=== PATIENT | female | born 1955 | race Caucasian/White ===

== ENCOUNTER 2024-05-26 11:56 | Inpatient (IN) | payer MEDICARE, OTHER ==
[2024-05-26] MEDS ORDERED: Amiodarone 150 MG/3 ML VIAL ONE ×2 (12:06→12:11)
[2024-05-26] MEDS ORDERED: NOREPINEPHRINE 8 MG/250 ML-D5W 250 ML ONE (12:11)
[2024-05-26] MEDS ORDERED: EPINEPHrine 1 MG/10 ML Abboject SYRINGE ONE (12:11)
[2024-05-26] MEDS ORDERED: Sodium Bicarb 50 MEQ/50 ML Abboject 8.4% SYRINGE ONE ×2 (12:11→15:02)
[2024-05-26 12:34] LABS: Analyzer IN Cardio ER; Base Excess (BEa) -24.2 mEq/L (-2.0 to +3.0); CO2 Tension 24.3 mmHg (35.0-45.0); Calcium, Ionized (arterial) 1.24 mmol/L (1.12-1.30); Carboxyhemoglobin (COHb) 0.2 gm% (0.0-3.0); Hematocrit-ABG 29 % (36.0-47.0); Hemoglobin (Hb) 9.7 g/dL (12.0-16.0); O2 Tension (PaO2), arterial 386.2 mmHg (> 80.0); Potassium - ABG Lab 4.12 mmol/L (3.70-5.30); pH, Arterial 6.989 (7.35-7.45)
[2024-05-26 12:35] LABS: ALV-art Gradient -60.075 mmHg (0-20); Actual Bicarbonate (HCO3a) 5.7 mEq/L (22-28); Puncture Site Left Brachial artery
[2024-05-26] MEDS ORDERED: Pantoprazole 40 MG VIAL ONE (12:55)
[2024-05-26 13:12] LABS: INR-International Normal Ratio 2.1; Prothrombin Time 23.9 sec (12.0-14.7)
[2024-05-26 13:13] LABS: PTT 49.3 sec (22.9-36.1)
[2024-05-26 13:18] LABS: Phosphorus 5.7 mg/dL (2.3-4.7)
[2024-05-26 13:22] LABS: Acetaminophen Less than 10 mcg/mL (Less than 10); Alcohol Less than 10.0 mg/dL (Less than 10); Salicylate Less than 8.0 mg/dL (Less than 8.0)
[2024-05-26 13:23] LABS: Troponin I 0.022 ng/mL (< 0.028)
[2024-05-26 13:24] LABS: ALT (SGPT) 12 U/L (8-55); AST (SGOT) 27 U/L (5-34); Albumin 1.7 g/dL (3.4-4.8); Alkaline Phosphatase 115 U/L (40-110); Anion Gap 24 mmol/L (10-20); BUN (Urea Nitrogen) 66 mg/dL (9.8-20.1); Bilirubin, Total 0.6 mg/dL (0.2-1.2); CK (CPK) 558 U/L (29-168); Calc. Creatinine Clearance 0 mL/min (70-130); Calcium 7.9 mg/dL (7.8-10.44); Carbon Dioxide 8 mmol/L (23-31); Chloride 114 mmol/L (98-107); Estimated GFR 20; Globulin 2.7 g/dL (2.4-3.5); Glucose 189 mg/dL (80-115); Magnesium 2.2 mg/dL (1.6-2.6); Potassium 3.8 mmol/L (3.5-5.1); Protein, Total 4.4 g/dL (5.8-8.1); Sodium 142 mmol/L (136-145)
[2024-05-26 13:52] LABS: Hematocrit 24.7 % (36.0-47.0); Hemoglobin 8.4 g/dL (12.0-16.0); Mean Corpuscular Hemoglobin 33.7 pg (27.0-31.0); Mean Corpuscular Volume 99.2 fL (78.0-98.0); Platelet Count 103 10x3/uL (130-400); RBC Distribution Width 19.7 % (11.5-14.5); Red Blood Cell (RBC) Count 2.49 mill/uL (4.20-5.40)
[2024-05-26 14:15] LABS: Anisocytosis MODERATE=16-30 cells HPF (0-5); Band 6 % (5-11); Burr Cells MODERATE= 6-15 cells HPF (0-1); Large Platelets 27.5 % (0-5); Lymphocytes 25 % (21-51); Macrocytosis MODERATE=16-30 cells HPF (0-5); Monocytes 9 % (0-10); Neutrophil 60 % (42-75); Nucleated RBC (Manual Ct) 4 % (0); Ovalocytes SLIGHT = 2-5 cells HPF (0-1); Platelet Adequacy Comment Platelets Decreased; Poikilocytosis MARKED = >30 cells HPF (0-5); Polychromasia SLIGHT = 2-3 cells HPF (0-2); Smudge Cells 36.3 %
[2024-05-26] MEDS ORDERED: Ventilator Sedation Protocol 1 EACH FS SCH (14:30)
[2024-05-26] MEDS ORDERED: Sodium Chloride 0.9% 1,000 ML IV SCH (14:30)
[2024-05-26 14:34] LABS: Analyzer IN Cardio ER; Carboxyhemoglobin (COHb) 0.3 gm% (0.0-3.0); Hematocrit-ABG 24 % (36.0-47.0); Hemoglobin (Hb) 8.2 g/dL (12.0-16.0); O2 Tension (PaO2), arterial 414.8 mmHg (> 80.0); Potassium - ABG Lab 3.34 mmol/L (3.70-5.30)
[2024-05-26 14:40] LABS: Actual Bicarbonate (HCO3a) 8.1 mEq/L (22-28); CO2 Tension 23.3 mmHg (35.0-45.0); pH, Arterial 7.158 (7.35-7.45)
[2024-05-26 14:41] LABS: ALV-art Gradient -87.425 mmHg (0-20); Puncture Site Right Radial artery
[2024-05-26] MEDS ORDERED: metroNIDAZOLE 500 MG (100 mL) BAG ONE (14:41)
[2024-05-26] MEDS ORDERED: cefTRIAXone (ROCEPHIN) 2 GM VIAL ONE (14:41)
[2024-05-26] MEDS ORDERED: Sodium Chloride 0.9% 100 ML ONE (14:42)
[2024-05-26] MEDS ORDERED: Lorazepam 2 MG/ML VIAL SLOW IVP PRN (14:45)
[2024-05-26] MEDS ORDERED: Fentanyl BOLUS 250 ML IVPB PRN (14:45)
[2024-05-26] MEDS ORDERED: DISCONTINUE PREVIOUS NARCOTIC PAIN MEDICATIONS AND BENZODIAZEPINES FS SCH (14:45)
[2024-05-26] MEDS ORDERED: Propofol BOLUS 1,000 MG/100 ML VIAL IV PRN (14:45)
[2024-05-26] MEDS ORDERED: Propofol 1,000 MG/100 ML VIAL IV PRN (14:45)
[2024-05-26] MEDS ORDERED: Fentanyl CADD 100 ML IV SCH (14:45)
[2024-05-26] MEDS ORDERED: Amiodarone 450 MG in Dextrose 5% in Water 250 ML IVPB SCH (15:00)
[2024-05-26] MEDS ORDERED: Acetaminophen 325 MG TAB PER TUBE PRN (15:05)
[2024-05-26] MEDS ORDERED: Senokot S 8.6-50 MG TAB PO PRN (15:05)
[2024-05-26] MEDS ORDERED: Ondansetron PF 4 MG/2 ML Vial IVP PRN (15:05)
[2024-05-26] MEDS ORDERED: Bisacodyl 5 MG TAB PO PRN (15:05)
[2024-05-26] MEDS ORDERED: Amiodarone 450 MG, Admixture Fee 1 EACH in Dextrose 5% in Water 250 ML IVPB SCH (15:15)
[2024-05-26] MEDS: Lactated Ringer's 1,000 ML IV SCH (16:35)
[2024-05-26 16:45] LABS: Anion Gap 20 mmol/L (10-20); BUN (Urea Nitrogen) 61 mg/dL (9.8-20.1); Calc. Creatinine Clearance 0 mL/min (70-130); Carbon Dioxide 10 mmol/L (23-31); Chloride 115 mmol/L (98-107); Estimated GFR 25; Glucose 305 mg/dL (80-115); Potassium 3.5 mmol/L (3.5-5.1); Sodium 141 mmol/L (136-145)
[2024-05-26] MEDS: Albumin 25% 25 GM (100 mL) BOT IVPB SCH (16:45)
[2024-05-26] MEDS: Vancomycin 1.5 GRAM/300 ML BAG 1.5 GM in Premix 1 BAG IVPB SCH (16:56)
[2024-05-26] MEDS: Thiamine HCl 200 MG/2 ML VIAL SLOW IVP SCH (17:02)
[2024-05-26] MEDS: Multivitamins, Adult 10 ML, Thiamine HCl 100 MG, Folic Acid 1 MG in Dextrose 5 %-0.45 %... IV SCH (17:05)
[2024-05-26] MEDS: Piperacillin/Tazobactam 3.375 GM in Sodium Chloride 0.9% 100 ML IVPB SCH ×2 (17:07→20:04)
[2024-05-26] MEDS ORDERED: Vancomycin Dose by Levels Sliding Scale (Wt <71) FS SCH (17:30)
[2024-05-26] MEDS: Sodium Bicarbonate 70 MEQ in Sodium Chloride 0.45% 1,000 ML IV SCH (17:30)
[2024-05-26 18:09] LABS: Hematocrit 18.1 % (36.0-47.0); Hemoglobin 6.4 g/dL (12.0-16.0)
[2024-05-26 18:29] LABS: Anion Gap 18 mmol/L (10-20); BUN (Urea Nitrogen) 58 mg/dL (9.8-20.1); Calc. Creatinine Clearance 25 mL/min (70-130); Calcium 6.9 mg/dL (7.8-10.44); Carbon Dioxide 11 mmol/L (23-31); Chloride 113 mmol/L (98-107); Estimated GFR 24; Glucose 294 mg/dL (80-115); Potassium 3.2 mmol/L (3.5-5.1); Sodium 139 mmol/L (136-145)
[2024-05-26] MEDS: Ipratropium/Albuterol 3 ML NEB NEB SCH (18:46)
[2024-05-26] MEDS: Calcium Chloride 1 GM/10 ML Abboject SYRINGE IVP SCH (19:33)
[2024-05-26 19:47] LABS: Lactic Acid 4.96 mmol/L (0.5-2.2)
[2024-05-27 01:51] LABS: Amphetamine Not Detected (NotDetected); Barbiturates Screen Not Detected (NotDetected); Benzodiazepine Screen Not Detected (NotDetected); Cocaine Metabolite Screen Not Detected (NotDetected); Methadone Not Detected (NotDetected); Methamphetamine Not Detected (NotDetected); Opiate Screen Not Detected (NotDetected); Oxycodone Screen Not Detected (NotDetected); Phencyclidine (PCP) Not Detected (NotDetected); THC/Cannabinoid Screen Not Detected (NotDetected); Tricyclic Screen Not Detected (NotDetected)
[2024-05-27] MEDS: NOREPINEPHRINE 8 MG/250 ML-D5W 250 ML IVPB SCH (02:08)
[2024-05-27] MEDS: Pantoprazole 80 MG, Admixture Fee 1 EACH in Sodium Chloride 0.9% 100 ML IVPB SCH (02:22)
[2024-05-27 04:42] LABS: Lactic Acid 3.45 mmol/L (0.5-2.2)
[2024-05-27 04:45] LABS: INR-International Normal Ratio 1.8; Prothrombin Time 20.9 sec (12.0-14.7)
[2024-05-27 04:55] LABS: ALT (SGPT) 9 U/L (8-55); AST (SGOT) 31 U/L (5-34); Albumin 2.6 g/dL (3.4-4.8); Alkaline Phosphatase 79 U/L (40-110); Anion Gap 19 mmol/L (10-20); BUN (Urea Nitrogen) 58 mg/dL (9.8-20.1); Bilirubin, Total 1.4 mg/dL (0.2-1.2); CK (CPK) 303 U/L (29-168); Calc. Creatinine Clearance 24 mL/min (70-130); Calcium 7.9 mg/dL (7.8-10.44); Carbon Dioxide 14 mmol/L (23-31); Chloride 111 mmol/L (98-107); Estimated GFR 24; Globulin 1.8 g/dL (2.4-3.5); Glucose 64 mg/dL (80-115); Phosphorus 2.7 mg/dL (2.3-4.7); Potassium 3.4 mmol/L (3.5-5.1); Protein, Total 4.4 g/dL (5.8-8.1); Sodium 141 mmol/L (136-145)
[2024-05-27 05:19] VITALS: BMI 28.4
[2024-05-27 07:18] LABS: Actual Bicarbonate (HCO3a) 15.2 mEq/L (22-28); Base Excess (BEa) -7.6 mEq/L (-2.0 to +3.0); Calcium, Ionized (arterial) 1.07 mmol/L (1.12-1.30); Carboxyhemoglobin (COHb) 0.4 gm% (0.0-3.0); Hematocrit-ABG 25 % (36.0-47.0); Hemoglobin (Hb) 8.6 g/dL (12.0-16.0); O2 Tension (PaO2), arterial 117.1 mmHg (> 80.0); pH, Arterial 7.452 (7.35-7.45)
[2024-05-27 07:19] LABS: CO2 Tension 22.2 mmHg (35.0-45.0); Puncture Site Right Brachial art
[2024-05-27] MEDS: Piperacillin/Tazobactam 3.375 GM in Sodium Chloride 0.9% 100 ML IVPB SCH (07:37)
[2024-05-27] MEDS: Pantoprazole 40 MG VIAL IVP SCH (07:38)
[2024-05-27 08:42] LABS: Mean Corpuscular HGB CONC 36.4 g/dL (32.0-36.0); Mean Corpuscular Hemoglobin 32.9 pg (27.0-31.0); Mean Corpuscular Volume 90.5 fL (78.0-98.0); Platelet Count 87 10x3/uL (130-400); RBC Distribution Width 18.2 % (11.5-14.5); Red Blood Cell (RBC) Count 2.43 mill/uL (4.20-5.40)
[2024-05-27 09:29] LABS: Band 3 % (5-11); Burr Cells SLIGHT = 2-5 cells HPF (0-1); Hypersegmented Neutrophil MODERATE (None Seen); Large Platelets 9.8 % (0-5); Lymphocytes 17 % (21-51); Monocytes 4 % (0-10); Neutrophil 76 % (42-75); Platelet Adequacy Comment Platelets Decreased; Polychromasia MODERATE = 3-4 cells HPF (0-2); Reflex for Review?? YES; Schistocytes SLIGHT = 2-5 cells HPF (0-1); Smudge Cells 5.9 %
[2024-05-27] MEDS: Potassium Chloride 40 MEQ in Premix 1 BAG IVPB SCH (09:49)
[2024-05-27] MEDS: Morphine 2 MG/ML VIAL SLOW IVP PRN (11:39)
[2024-05-27 13:09] LABS: Hematocrit 20.1 % (36.0-47.0); Hemoglobin 7.4 g/dL (12.0-16.0); Mean Corpuscular HGB CONC 36.8 g/dL (32.0-36.0); Mean Corpuscular Hemoglobin 33.9 pg (27.0-31.0); Mean Corpuscular Volume 92.2 fL (78.0-98.0); Platelet Count 81 10x3/uL (130-400); RBC Distribution Width 18.5 % (11.5-14.5); Red Blood Cell (RBC) Count 2.18 mill/uL (4.20-5.40)
[2024-05-27] MEDS: Acetaminophen 500 MG TAB PO SCH (14:13)
[2024-05-27 14:18] LABS: Anisocytosis MARKED = >30 cells HPF (0-5); Band 2 % (5-11); Burr Cells SLIGHT = 2-5 cells HPF (0-1); Large Platelets 8.9 % (0-5); Lymphocytes 12 % (21-51); Macrocytosis MODERATE=16-30 cells HPF (0-5); Monocytes 3 % (0-10); Neutrophil 83 % (42-75); Nucleated RBC (Manual Ct) 2 % (0); Ovalocytes SLIGHT = 2-5 cells HPF (0-1); Platelet Adequacy Comment Platelets Decreased; Polychromasia SLIGHT = 2-3 cells HPF (0-2); Smudge Cells 5.9 %; Target Cells SLIGHT = 2-5 cells HPF (0-1)
[2024-05-27] MEDS: DC Sedation Protocol FS ONE (14:29)
[2024-05-27] MEDS: Silver Sulfadiazine 50 GM TUBE TOP SCH ×2 (15:49→20:18)
[2024-05-27 16:51] LABS: Vancomycin, Trough 22.6 ug/mL
[2024-05-27] MEDS: traMADol HCl 50 MG TAB PO PRN (19:49)
[2024-05-28 05:07] LABS: Hematocrit 20.5 % (36.0-47.0); Hemoglobin 7.4 g/dL (12.0-16.0); Mean Corpuscular HGB CONC 36.1 g/dL (32.0-36.0); Mean Corpuscular Hemoglobin 33.3 pg (27.0-31.0); Mean Corpuscular Volume 92.3 fL (78.0-98.0); Platelet Count 70 10x3/uL (130-400); RBC Distribution Width 18.6 % (11.5-14.5); Red Blood Cell (RBC) Count 2.22 mill/uL (4.20-5.40)
[2024-05-28 05:10] LABS: Calc. Creatinine Clearance 24 mL/min (70-130); Estimated GFR 20; Vancomycin, Random 19.4 ug/mL (See Comment)
[2024-05-28 05:12] LABS: ALT (SGPT) 11 U/L (8-55); AST (SGOT) 36 U/L (5-34); Albumin 2.7 g/dL (3.4-4.8); Alkaline Phosphatase 86 U/L (40-110); Anion Gap 17 mmol/L (10-20); BUN (Urea Nitrogen) 52 mg/dL (9.8-20.1); Bilirubin, Total 2.5 mg/dL (0.2-1.2); Calcium 7.2 mg/dL (7.8-10.44); Carbon Dioxide 18 mmol/L (23-31); Chloride 106 mmol/L (98-107); Globulin 1.6 g/dL (2.4-3.5); Glucose 100 mg/dL (80-115); Magnesium 1.3 mg/dL (1.6-2.6); Phosphorus 2.5 mg/dL (2.3-4.7); Potassium 3.4 mmol/L (3.5-5.1); Protein, Total 4.3 g/dL (5.8-8.1); Sodium 138 mmol/L (136-145)
[2024-05-28 05:17] LABS: INR-International Normal Ratio 1.6; Prothrombin Time 18.9 sec (12.0-14.7)
[2024-05-28 05:18] LABS: PTT 49.9 sec (22.9-36.1)
[2024-05-28 05:35] LABS: Anisocytosis SLIGHT = 6-15 cells HPF (0-5); Band 3 % (5-11); Hypochromia SLIGHT = 6-15 cells HPF (0-5); Lymphocytes 15 % (21-51); Monocytes 4 % (0-10); Neutrophil 78 % (42-75); Nucleated RBC (Manual Ct) 2 % (0); Platelet Adequacy Comment Platelets Decreased; Polychromasia SLIGHT = 2-3 cells HPF (0-2)
[2024-05-28] MEDS: Vancomycin HCl 250 MG, Admixture Fee 1 EACH in Sodium Chloride 0.9% 100 ML IVPB SCH (08:57)
[2024-05-28] MEDS: Potassium Chloride 40 MEQ in Premix 1 BAG IVPB SCH (10:23)
[2024-05-28] MEDS: Magnesium 2 GM/50 ML(in water) 2 GM in Premix 1 BAG IVPB SCH (10:24)
[2024-05-28] MEDS: Sodium Bicarbonate 70 MEQ in Sodium Chloride 0.45% 1,000 ML IV SCH (13:09)
[2024-05-28] MEDS: traMADol HCl 50 MG TAB PO PRN (17:05)
[2024-05-29 04:25] LABS: #Basophils 0.04 10x3/uL (0.0-0.2); %Basophils 0.6 % (0.0-1.0); %Eosinophils 1.5 % (0.0-10.0); %Lymphocytes 25.3 % (21.0-51.0); %Monocytes 7.8 % (0.0-10.0); %Neutrophils 60.8 % (42.0-75.0); Hematocrit 22.6 % (36.0-47.0); Hemoglobin 8.2 g/dL (12.0-16.0); Mean Corpuscular HGB CONC 36.3 g/dL (32.0-36.0); Mean Corpuscular Hemoglobin 31.7 pg (27.0-31.0); Mean Corpuscular Volume 87.3 fL (78.0-98.0); Platelet Count 48 10x3/uL (130-400); RBC Distribution Width 19.9 % (11.5-14.5); Red Blood Cell (RBC) Count 2.59 mill/uL (4.20-5.40)
[2024-05-29 04:39] LABS: ALT (SGPT) 13 U/L (8-55); AST (SGOT) 37 U/L (5-34); Albumin 2.3 g/dL (3.4-4.8); Alkaline Phosphatase 96 U/L (40-110); Anion Gap 13 mmol/L (10-20); BUN (Urea Nitrogen) 41 mg/dL (9.8-20.1); Bilirubin, Total 3.4 mg/dL (0.2-1.2); Calc. Creatinine Clearance 29 mL/min (70-130); Calcium 7.2 mg/dL (7.8-10.44); Carbon Dioxide 24 mmol/L (23-31); Chloride 104 mmol/L (98-107); Estimated GFR 25; Globulin 1.8 g/dL (2.4-3.5); Glucose 82 mg/dL (80-115); Magnesium 1.5 mg/dL (1.6-2.6); Phosphorus 2.1 mg/dL (2.3-4.7); Potassium 3.2 mmol/L (3.5-5.1); Protein, Total 4.1 g/dL (5.8-8.1); Sodium 138 mmol/L (136-145)
[2024-05-29 05:00] LABS: HBSAB Concentration Less than 8.00 mIU/mL; HBsAg Index 0.29 S/CO (0-0.99); Hep B Core Total Ab NONREACTIVE (NonReactive); Hep B Core Total Index 0.09 S/CO (0-0.79); Hep B Surf AB NONREACTIVE (NonReactive); Hep B Surf Ag NONREACTIVE S/CO (NonReactive); Hep C IgG Ab NONREACTIVE S/CO (NonReactive); Hep C Index 0.09 S/CO (0-0.79)
[2024-05-29] MEDS: Magnesium Sulfate In Water 4 GM in Premix 1 BAG IVPB SCH (05:44)
[2024-05-29] MEDS ORDERED: Magnesium Sulfate 4 GM in Sodium Chloride 0.9% 250 ML 250 ML IVPB SCH (05:45)
[2024-05-29] MEDS: Potassium Chloride 20 MEQ in Premix 1 BAG IVPB SCH (08:15)
[2024-05-29 10:32] LABS: Vancomycin, Trough 16.3 ug/mL
[2024-05-29] MEDS ORDERED: Electrolyte Replacement Protocol FS PRN (11:30)
[2024-05-29] MEDS: Vancomycin HCl 250 MG, Admixture Fee 1 EACH in Sodium Chloride 0.9% 100 ML IVPB SCH (11:32)
[2024-05-29] MEDS: Lactated Ringer's 1,000 ML IV SCH ×2 (11:36)
[2024-05-29] MEDS: Midodrine HCl 5 MG TAB PO SCH ×2 (11:38→14:34)
[2024-05-29 16:07] LABS: T4 2.76 ug/dL (4.87-11.72); Thyroid Stimulating Hormone 4.0642 uIU/mL (0.35-4.94)
[2024-05-29] MEDS: Hydrocortisone Sod Succ/PF 100 mg/2 ml Vial IVP SCH ×2 (16:38→21:11)
[2024-05-30 03:43] LABS: Hemoglobin 8.9 g/dL (12.0-16.0); Mean Corpuscular HGB CONC 35.6 g/dL (32.0-36.0); Mean Corpuscular Hemoglobin 31.7 pg (27.0-31.0); Platelet Count 56 10x3/uL (130-400); RBC Distribution Width 20.2 % (11.5-14.5); Red Blood Cell (RBC) Count 2.81 mill/uL (4.20-5.40)
[2024-05-30 03:59] LABS: Magnesium 2.3 mg/dL (1.6-2.6)
[2024-05-30 04:06] LABS: ALT (SGPT) 16 U/L (8-55); AST (SGOT) 39 U/L (5-34); Albumin 2.3 g/dL (3.4-4.8); Alkaline Phosphatase 154 U/L (40-110); Anion Gap 15 mmol/L (10-20); BUN (Urea Nitrogen) 33 mg/dL (9.8-20.1); Bilirubin, Total 2.2 mg/dL (0.2-1.2); Calc. Creatinine Clearance 38 mL/min (70-130); Calcium 7.3 mg/dL (7.8-10.44); Carbon Dioxide 20 mmol/L (23-31); Chloride 105 mmol/L (98-107); Estimated GFR 33; Globulin 2.1 g/dL (2.4-3.5); Glucose 130 mg/dL (80-115); Iron 33 ug/dL (50-170); Iron Binding Capacity, Total 93 mcg/dL (265-497); Phosphorus 2.6 mg/dL (2.3-4.7); Potassium 3.4 mmol/L (3.5-5.1); Protein, Total 4.4 g/dL (5.8-8.1); Sodium 137 mmol/L (136-145)
[2024-05-30 04:28] LABS: Anisocytosis SLIGHT = 6-15 cells HPF (0-5); Eosinophils 1 % (0-10); Large Platelets 27.3 % (0-5); Lymphocytes 18 % (21-51); Monocytes 7 % (0-10); Neutrophil 74 % (42-75); Nucleated RBC (Manual Ct) 1 % (0); Platelet Adequacy Comment Platelets Decreased; Polychromasia SLIGHT = 2-3 cells HPF (0-2); Smudge Cells 18.2 %
[2024-05-30] MEDS: Potassium Chloride 20 MEQ in Premix 1 BAG IVPB SCH (05:12)
[2024-05-30] MEDS ORDERED: Levothyroxine Sodium 25 MCG TAB PO SCH (10:30)
[2024-05-30] MEDS: Electrolyte Replacement Protocol 1 EACH FS ONE (11:11)
[2024-05-30] MEDS: Levothyroxine 100 MCG SDV IVP SCH (11:42)
[2024-05-30] MEDS: Albumin 25% 25 GM (100 mL) BOT IVPB SCH (11:42)
[2024-05-30 12:38] LABS: Potassium 3.7 mmol/L (3.5-5.1)
[2024-05-30 12:43] LABS: Vancomycin, Random 14.6 ug/mL (See Comment)
[2024-05-30] MEDS: Vancomycin HCl 500 MG in Sodium Chloride 0.9% 100 ML IVPB SCH (13:21)
[2024-05-31 03:34] LABS: Vancomycin, Random 18.1 ug/mL (See Comment)
[2024-05-31 03:38] LABS: ALT (SGPT) 11 U/L (8-55); AST (SGOT) 25 U/L (5-34); Albumin 3.2 g/dL (3.4-4.8); Alkaline Phosphatase 144 U/L (40-110); Anion Gap 15 mmol/L (10-20); BUN (Urea Nitrogen) 27 mg/dL (9.8-20.1); Bilirubin, Total 1.7 mg/dL (0.2-1.2); Calc. Creatinine Clearance 45 mL/min (70-130); Calcium 7.8 mg/dL (7.8-10.44); Carbon Dioxide 20 mmol/L (23-31); Chloride 111 mmol/L (98-107); Estimated GFR 41; Globulin 1.4 g/dL (2.4-3.5); Glucose 123 mg/dL (80-115); Phosphorus 2.2 mg/dL (2.3-4.7); Potassium 2.9 mmol/L (3.5-5.1); Protein, Total 4.6 g/dL (5.8-8.1); Sodium 143 mmol/L (136-145)
[2024-05-31 04:09] LABS: #Basophils Less than 0.03 10x3/uL (0.0-0.2); #Eosinophils Less than 0.03 10x3/uL (0.0-0.7); %Lymphocytes 13.8 % (21.0-51.0); %Monocytes 11.6 % (0.0-10.0); %Neutrophils 70.4 % (42.0-75.0); Hematocrit 19.1 % (36.0-47.0); Hemoglobin 6.6 g/dL (12.0-16.0); Mean Corpuscular HGB CONC 34.6 g/dL (32.0-36.0); Mean Corpuscular Volume 92.7 fL (78.0-98.0); Platelet Count 50 10x3/uL (130-400); RBC Distribution Width 20.7 % (11.5-14.5); Red Blood Cell (RBC) Count 2.06 mill/uL (4.20-5.40)
[2024-05-31] MEDS: Potassium Chloride 20 MEQ in Premix 1 BAG IVPB SCH (04:34)
[2024-05-31] MEDS: Levothyroxine Sodium 25 MCG TAB PO SCH (05:36)
[2024-05-31 08:42] LABS: Hemoglobin 7.2 g/dL (12.0-16.0)
[2024-05-31 21:40] LABS: Potassium 3.8 mmol/L (3.5-5.1)
[2024-06-01 04:54] LABS: Hemoglobin 9.1 g/dL (12.0-16.0); Mean Corpuscular Hemoglobin 30.8 pg (27.0-31.0); Mean Corpuscular Volume 88.1 fL (78.0-98.0); Platelet Count 79 10x3/uL (130-400); RBC Distribution Width 22.5 % (11.5-14.5); Red Blood Cell (RBC) Count 2.95 mill/uL (4.20-5.40)
[2024-06-01 05:24] LABS: Anisocytosis SLIGHT = 6-15 cells HPF (0-5); Band 3 % (5-11); Hypochromia SLIGHT = 6-15 cells HPF (0-5); Large Platelets 11.4 % (0-5); Lymphocytes 15 % (21-51); Monocytes 19 % (0-10); Myelocyte 3 % (0-0); Neutrophil 60 % (42-75); Platelet Adequacy Comment Platelets Decreased; Polychromasia MODERATE = 3-4 cells HPF (0-2); Smudge Cells 3.8 %
[2024-06-01 06:13] LABS: ALT (SGPT) 15 U/L (8-55); AST (SGOT) 30 U/L (5-34); Albumin 3.1 g/dL (3.4-4.8); Alkaline Phosphatase 177 U/L (40-110); Anion Gap 16 mmol/L (10-20); BUN (Urea Nitrogen) 25 mg/dL (9.8-20.1); Bilirubin, Total 1.6 mg/dL (0.2-1.2); Calc. Creatinine Clearance 51 mL/min (70-130); Calcium 8.3 mg/dL (7.8-10.44); Carbon Dioxide 17 mmol/L (23-31); Chloride 114 mmol/L (98-107); Estimated GFR 47; Globulin 1.7 g/dL (2.4-3.5); Glucose 115 mg/dL (80-115); Phosphorus 2.5 mg/dL (2.3-4.7); Potassium 3.7 mmol/L (3.5-5.1); Protein, Total 4.8 g/dL (5.8-8.1); Sodium 143 mmol/L (136-145)
[2024-06-01] MEDS ORDERED: PROPOFOL 200 MG/20 ML VIAL ONE (12:58)
[2024-06-01] MEDS ORDERED: Lidocaine 1% PF 5 ML VIAL ONE (12:58)
[2024-06-01] MEDS: Fluconazole In NaCl,Iso-Osm 400 MG in Premix 1 BAG IVPB SCH (15:24)
[2024-06-01] MEDS: Pantoprazole 40 MG VIAL IVP SCH (20:40)
[2024-06-02 04:49] LABS: Phosphorus 2.7 mg/dL (2.3-4.7)
[2024-06-02 04:50] LABS: Hematocrit 27.7 % (36.0-47.0); Hemoglobin 9.1 g/dL (12.0-16.0); Mean Corpuscular HGB CONC 32.9 g/dL (32.0-36.0); Mean Corpuscular Hemoglobin 31.7 pg (27.0-31.0); Mean Corpuscular Volume 96.5 fL (78.0-98.0); Mean Platelet Volume 13.9 fL (7.4-10.4); Platelet Count 114 10x3/uL (130-400); RBC Distribution Width 24.1 % (11.5-14.5); Red Blood Cell (RBC) Count 2.87 mill/uL (4.20-5.40)
[2024-06-02 05:01] LABS: ALT (SGPT) 13 U/L (8-55); AST (SGOT) 17 U/L (5-34); Albumin 2.9 g/dL (3.4-4.8); Alkaline Phosphatase 146 U/L (40-110); Anion Gap 13 mmol/L (10-20); BUN (Urea Nitrogen) 23 mg/dL (9.8-20.1); Bilirubin, Total 1.3 mg/dL (0.2-1.2); Calc. Creatinine Clearance 59 mL/min (70-130); Calcium 8.2 mg/dL (7.8-10.44); Carbon Dioxide 20 mmol/L (23-31); Chloride 117 mmol/L (98-107); Estimated GFR 56; Globulin 1.6 g/dL (2.4-3.5); Glucose 110 mg/dL (80-115); Potassium 3.4 mmol/L (3.5-5.1); Protein, Total 4.5 g/dL (5.8-8.1); Sodium 147 mmol/L (136-145)
[2024-06-02 06:53] LABS: Anisocytosis MODERATE=16-30 cells HPF (0-5); Burr Cells SLIGHT = 2-5 cells HPF (0-1); Howell Jolly Bodies SLIGHT = 1-2 cells HPF (None Seen); Large Platelets 26.9 % (0-5); Lymphocytes 16 % (21-51); Macrocytosis SLIGHT = 6-15 cells HPF (0-5); Metamyelocyte 1 % (0-0); Monocytes 9 % (0-10); Neutrophil 72 % (42-75); Nucleated RBC (Manual Ct) 1 % (0); Other Cell Types 2.2; Platelet Adequacy Comment Platelets Decreased; Poikilocytosis SLIGHT = 6-15 cells HPF (0-5); Polychromasia SLIGHT = 2-3 cells HPF (0-2); Smudge Cells 8.6 %
[2024-06-02] MEDS: 1/2 NS w/Potassium 20 mEq 1,000 ML IV SCH (10:16)
[2024-06-02] MEDS: Potassium Chloride 20 MEQ TAB PO SCH (10:16)
[2024-06-02] MEDS: Fluconazole In NaCl,Iso-Osm 200 MG in Premix 1 BAG IVPB SCH (10:16)
[2024-06-02 11:50] LABS: ANA Symphony (Qualitative) Negative (Negative); ANA Symphony (Quantitative) 0.3 Ratio (< 0.7 Negative); EliA Vaculitis New Method **** NEW METHOD ****; Mitochondrial Ab 1.6 U/mL (<4 Negative); dsDNA IgG Antibody 1.5 IU/mL (<10 Negative)
[2024-06-02] MEDS ORDERED: Ipratropium/Albuterol 3 ML NEB NEB PRN (12:45)
[2024-06-02] MEDS: Hydrocortisone Sod Succ/PF 100 mg/2 ml Vial IVP SCH (14:41)
[2024-06-03 04:41] LABS: Hematocrit 27.7 % (36.0-47.0); Hemoglobin 8.9 g/dL (12.0-16.0); Mean Corpuscular HGB CONC 32.1 g/dL (32.0-36.0); Mean Corpuscular Hemoglobin 31.7 pg (27.0-31.0); Mean Corpuscular Volume 98.6 fL (78.0-98.0); Mean Platelet Volume 13.1 fL (7.4-10.4); Platelet Count 158 10x3/uL (130-400); Red Blood Cell (RBC) Count 2.81 mill/uL (4.20-5.40)
[2024-06-03 05:10] LABS: Anisocytosis SLIGHT = 6-15 cells HPF (0-5); Band 2 % (5-11); Hypochromia SLIGHT = 6-15 cells HPF (0-5); Large Platelets 12.5 % (0-5); Lymphocytes 6 % (21-51); Monocytes 7 % (0-10); Neutrophil 86 % (42-75); Nucleated RBC (Manual Ct) 1 % (0); Platelet Adequacy Comment Platelets Normal; Polychromasia SLIGHT = 2-3 cells HPF (0-2); Smudge Cells 7.7 %
[2024-06-03 05:12] LABS: ALT (SGPT) 12 U/L (8-55); AST (SGOT) 17 U/L (5-34); Albumin 2.8 g/dL (3.4-4.8); Alkaline Phosphatase 121 U/L (40-110); Anion Gap 12 mmol/L (10-20); BUN (Urea Nitrogen) 23 mg/dL (9.8-20.1); Bilirubin, Total 1.1 mg/dL (0.2-1.2); Calc. Creatinine Clearance 66 mL/min (70-130); Calcium 8.2 mg/dL (7.8-10.44); Carbon Dioxide 18 mmol/L (23-31); Chloride 117 mmol/L (98-107); Estimated GFR 65; Globulin 1.9 g/dL (2.4-3.5); Glucose 108 mg/dL (80-115); Phosphorus 2.2 mg/dL (2.3-4.7); Potassium 3.4 mmol/L (3.5-5.1); Protein, Total 4.7 g/dL (5.8-8.1); Sodium 144 mmol/L (136-145)
[2024-06-03] MEDS ORDERED: Regadenoson 0.4 MG/5 ML SYRINGE ONE (11:11)
[2024-06-03] MEDS ORDERED: Ipratropium/Albuterol 3 ML NEB NEB PRN (13:49)
[2024-06-03] MEDS: Multivitamin W/ Minerals 1 TAB PO SCH (14:48)
[2024-06-03] MEDS: Thiamine 100 MG TAB PO SCH (14:48)
[2024-06-03] MEDS: Potassium Chloride 20 MEQ TAB PO SCH (14:48)
[2024-06-03] MEDS: Amlodipine 10 MG TAB PO SCH (21:42)
[2024-06-04] MEDS: Amlodipine 10 MG TAB PO SCH (08:40)
[2024-06-04 11:19] VITALS: BMI 30.4
[2024-06-07] MEDS: Fluconazole 100 MG TAB PO SCH (09:04)
[2024-06-08] MEDS ORDERED: Sertraline 25 MG TAB PO SCH (09:14)
[2024-06-08] MEDS: Sertraline 25 MG TAB PO SCH (10:50)
[2024-06-08 12:39] VITALS: BP 121/68; TEMP 97.7
[2024-06-08] MEDS ORDERED: Pantoprazole 40 MG DR.TAB PO SCH (21:00)
[2024-06-10] MEDS ORDERED: FLU (Fluad Triv) TS24-25 (65UP)/MF59C/PF 45 MCG/0.5 ML Syringe IM ONE (09:00)
== END 2024-06-08 15:55 | DRG 871 ==
LOC: SUATTDRO 11:56 → ERS 11:56 → CCU 15:02 → 2NO 05-31 11:13
PROVIDERS: ADMIT Internal Medicine; ATTEND Hospitalist
PROC: 30233N1 Transfusion of Nonautologous Red Blood Cells into Peripheral Vein, Percutaneous Approach (ICD-10-PCS; principal; 2024-05-26)
PROC: 5A1935Z Respiratory Ventilation, Less than 24 Consecutive Hours (ICD-10-PCS; 2024-05-26)
PROC: 4A033R1 Measurement of Arterial Saturation, Peripheral, Percutaneous Approach (ICD-10-PCS; 2024-05-26)
PROC: 3E033XZ Introduction of Vasopressor into Peripheral Vein, Percutaneous Approach (ICD-10-PCS; 2024-05-26)
PROC: 30233J1 Transfusion of Nonautologous Serum Albumin into Peripheral Vein, Percutaneous Approach (ICD-10-PCS; 2024-05-26)
PROC: 0DB68ZX Excision of Stomach, Via Natural or Artificial Opening Endoscopic, Diagnostic (ICD-10-PCS; 2024-06-01)
DX: A41.9 Sepsis, unspecified organism (principal); E43 Unspecified severe protein-calorie malnutrition; I46.8 Cardiac arrest due to other underlying condition; K27.4 Chronic or unspecified peptic ulcer, site unspecified, with hemorrhage; K22.11 Ulcer of esophagus with bleeding; J96.01 Acute respiratory failure with hypoxia; B37.81 Candidal esophagitis; E87.20 Acidosis, unspecified; L03.317 Cellulitis of buttock; I47.20 Ventricular tachycardia, unspecified; N17.9 Acute kidney failure, unspecified; M62.82 Rhabdomyolysis; E27.40 Unspecified adrenocortical insufficiency; F10.90 Alcohol use, unspecified, uncomplicated; F39 Unspecified mood [affective] disorder; I10 Essential (primary) hypertension; T68.XXXA Hypothermia, initial encounter; K74.60 Unspecified cirrhosis of liver; E03.9 Hypothyroidism, unspecified; D64.9 Anemia, unspecified; R65.20 Severe sepsis without septic shock; Z96.653 Presence of artificial knee joint, bilateral; F17.210 Nicotine dependence, cigarettes, uncomplicated; G89.29 Other chronic pain; M54.9 Dorsalgia, unspecified; Z88.5 Allergy status to narcotic agent; Z68.28 Body mass index [BMI] 28.0-28.9, adult
CPT/HCPCS: 36415; 36430; 36556; 36600; 51702; 70450; 71045; 76705; 78452; 80053; 80202; 80306; 80307; 82103; 82271; 82390; 82533; 82550; 82728; 82805; 83516; 83540; 83550; 83605; 83735; 84100; 84436; 84443; 84481; 84484; 85025; 85060; 85610; 85730; 86015; 86038; 86225; 86704; 86706; 86708; 86803; 86850; 86900; 86901; 87040; 87086; 87340; 87428; 88305; 88342; 92950; 93005; 93017; 93306; 94002; 94003; 94640; 96365; 96366; 96367; 96368; 96375; 97139; A9502; J0171; J0282; J0283; J0696; J1450; J1720; J2272; J2470; J2543; J2704; J2785; J3370; J3411; J3475; J3480; J7042; J7070; J7120; J7620; P9016; P9047

== ENCOUNTER 2024-06-12 03:35 | Inpatient (IN) | payer MEDICARE ==
[2024-06-12] MEDS ORDERED: Potassium Bicarbonate/Cit Ac 20 MEQ TAB ONE (03:44)
[2024-06-12] MEDS ORDERED: NOREPINEPHRINE 8 MG/250 ML-D5W 250 ML ONE (03:52)
[2024-06-12 03:55] LABS: Actual Bicarbonate (HCO3a) 29.9 mEq/L (22-28); Analyzer IN Cardio ER; Base Excess (BEa) 7.6 mEq/L (-2.0 to +3.0); CO2 Tension 32.7 mmHg (35.0-45.0); Carboxyhemoglobin (COHb) 1.2 gm% (0.0-3.0); Hematocrit-ABG 24 % (36.0-47.0); Potassium - ABG Lab 2.75 mmol/L (3.70-5.30); pH, Arterial 7.579 (7.35-7.45)
[2024-06-12 04:01] LABS: ALV-art Gradient 272.625 mmHg (0-20); Puncture Site RR
[2024-06-12] MEDS ORDERED: Ipratropium/Albuterol 3 ML NEB NEB PRN (05:03)
[2024-06-12] MEDS ORDERED: Electrolyte Replacement Protocol 1 EACH FS PRN (05:06)
[2024-06-12] MEDS ORDERED: Acetaminophen 325 MG TAB PO PRN (05:49)
[2024-06-12] MEDS ORDERED: Ondansetron PF 4 MG/2 ML Vial IVP PRN (05:49)
[2024-06-12] MEDS ORDERED: Ondansetron ODT 4 MG TAB PO PRN (05:49)
[2024-06-12] MEDS ORDERED: Calcium Carbonate 500 MG ChewTAB PO PRN (05:49)
[2024-06-12] MEDS ORDERED: Acetaminophen 650 MG Suppository PR PRN (05:49)
[2024-06-12 06:27] LABS: #Basophils 0.04 10x3/uL (0.0-0.2); %Basophils 0.7 % (0.0-1.0); %Eosinophils 1.4 % (0.0-10.0); %Lymphocytes 17.8 % (21.0-51.0); %Monocytes 5.7 % (0.0-10.0); %Neutrophils 73.9 % (42.0-75.0); Hematocrit 25.7 % (36.0-47.0); Hemoglobin 8.4 g/dL (12.0-16.0); Mean Corpuscular HGB CONC 32.7 g/dL (32.0-36.0); Mean Corpuscular Hemoglobin 33.9 pg (27.0-31.0); Mean Corpuscular Volume 103.6 fL (78.0-98.0); Mean Platelet Volume 12.6 fL (7.4-10.4); Platelet Count 146 10x3/uL (130-400); RBC Distribution Width 28.8 % (11.5-14.5); Red Blood Cell (RBC) Count 2.48 mill/uL (4.20-5.40)
[2024-06-12 06:35] LABS: ALT (SGPT) 23 U/L (Less than 34); AST (SGOT) 61 U/L (11-34); Albumin 2.7 g/dL (3.1-4.5); Alkaline Phosphatase 141 U/L (40-110); BUN (Urea Nitrogen) 7 mg/dL (9.8-20.1); Bilirubin, Total 1.3 mg/dL (0.3-1.2); Calc. Creatinine Clearance 0 mL/min (70-130); Calcium 8.2 mg/dL (7.8-10.44); Carbon Dioxide 29 mmol/L (23-31); Estimated GFR 100; Globulin 2.6 g/dL (2.4-3.5); Glucose 98 mg/dL (80-115); Protein, Total 5.3 g/dL (5.8-8.1)
[2024-06-12 07:14] LABS: Anion Gap 18 mmol/L (10-20); Chloride 103 mmol/L (98-107); Potassium 3.4 mmol/L (3.5-5.1); Sodium 146 mmol/L (136-145)
[2024-06-12] MEDS ORDERED: Electrolyte Replacement Protocol FS PRN (07:15)
[2024-06-12] MEDS: Piperacillin/Tazobactam 4.5 GM in Sodium Chloride 0.9% 100 ML IVPB SCH (07:46)
[2024-06-12] MEDS: Piperacillin/Tazobactam 3.375 GM in Sodium Chloride 0.9% 100 ML IVPB SCH ×2 (08:02→11:40)
[2024-06-12] MEDS: Vancomycin (BATCH) 1.5 GM in Premix 1 BAG IVPB SCH (08:03)
[2024-06-12] MEDS: Potassium Chloride 20 MEQ TAB PO SCH (08:04)
[2024-06-12] MEDS: Magnesium 2 GM/50 ML(in water) 2 GM in Premix 1 BAG IVPB SCH (08:04)
[2024-06-12] MEDS: Pantoprazole 40 MG DR.TAB PO SCH (08:04)
[2024-06-12] MEDS: Enoxaparin 40 MG (0.4 mL) SYRINGE SC SCH (09:10)
[2024-06-12] MEDS: Fluconazole 100 MG TAB PO SCH (09:10)
[2024-06-12 15:06] LABS: Potassium 3.8 mmol/L (3.5-5.1)
[2024-06-12] MEDS: Vancomycin 1 GM in Premix 1 BAG IVPB SCH (19:40)
[2024-06-12] MEDS: Oseltamivir 75 MG CAP PO SCH (21:06)
[2024-06-13 03:09] LABS: Anion Gap 14 mmol/L (10-20); BUN (Urea Nitrogen) 5 mg/dL (9.8-20.1); Calc. Creatinine Clearance 90 mL/min (70-130); Calcium 7.6 mg/dL (7.8-10.44); Carbon Dioxide 28 mmol/L (23-31); Chloride 106 mmol/L (98-107); Estimated GFR 98; Glucose 67 mg/dL (80-115); Magnesium 1.8 mg/dL (1.6-2.6); Potassium 3.7 mmol/L (3.5-5.1); Sodium 144 mmol/L (136-145)
[2024-06-13 03:37] LABS: #Basophils Less than 0.03 10x3/uL (0.0-0.2); %Basophils 0.4 % (0.0-1.0); %Eosinophils 3.8 % (0.0-10.0); %Lymphocytes 25.8 % (21.0-51.0); %Monocytes 6.2 % (0.0-10.0); %Neutrophils 62.7 % (42.0-75.0); Hematocrit 21.5 % (36.0-47.0); Hemoglobin 6.9 g/dL (12.0-16.0); Mean Corpuscular HGB CONC 32.1 g/dL (32.0-36.0); Mean Corpuscular Hemoglobin 33.5 pg (27.0-31.0); Mean Corpuscular Volume 104.4 fL (78.0-98.0); Mean Platelet Volume 12.6 fL (7.4-10.4); Platelet Count 142 10x3/uL (130-400); RBC Distribution Width 28.7 % (11.5-14.5); Red Blood Cell (RBC) Count 2.06 mill/uL (4.20-5.40)
[2024-06-13 04:05] LABS: Phosphorus 1.7 mg/dL (2.5-4.5)
[2024-06-13] MEDS: Dextrose 5 %-0.45 % NaCl 1,000 ML IV SCH (04:36)
[2024-06-13] MEDS: Magnesium 2 GM/50 ML(in water) 2 GM in Premix 1 BAG IVPB SCH (06:17)
[2024-06-13] MEDS: Levothyroxine Sodium 25 MCG TAB PO SCH (06:18)
[2024-06-13] MEDS: Potassium Phosphate 15 MMOL in Sodium Chloride 0.9% 100 ML IVPB SCH (06:18)
[2024-06-13] MEDS: FLU (Fluad Triv) TS24-25 (65UP)/MF59C/PF 45 MCG/0.5 ML Syringe IM ONE (07:51)
[2024-06-13] MEDS: Dexmedetomidine In 0.9 % NaCl 100 ML IV SCH (10:43)
[2024-06-13] MEDS ORDERED: Lidocaine 1% (PF) 30 ML VIAL FS SCH (10:45)
[2024-06-13 12:06] LABS: Fluid, pH - Pleural Fld Greater than 7.500 (7.60 - 7.66)
[2024-06-13 13:16] LABS: RBC Count-Automated (BF) 264499 /cu.mm; WBC/Nucleated-Auto (BF) 659 /cu.mm
[2024-06-13 13:41] LABS: BF Color Red; Body Fluid Source Thoracentesis Fluid; Clarity Cloudy/Turbid (Clear); Tube # EDTA
[2024-06-13 13:45] LABS: BF Segmented Neutrophils 7 %; Cell Count Non Hematic 67 %; Lymphocytes 26 %
[2024-06-13 13:56] LABS: Pleural Fluid, Protein 1.5 g/dL
[2024-06-13] MEDS: Lidocaine 1% (PF) 30 ML VIAL ONE (14:14)
[2024-06-14] MEDS: VANCOMYCIN 1.25 GM/250 ML BAG 1.25 GM in Premix 1 BAG IVPB SCH (05:22)
[2024-06-14 06:22] LABS: #Basophils 0.03 10x3/uL (0.0-0.2); %Basophils 0.6 % (0.0-1.0); %Eosinophils 2.9 % (0.0-10.0); %Lymphocytes 26.5 % (21.0-51.0); %Monocytes 6.3 % (0.0-10.0); %Neutrophils 62.2 % (42.0-75.0); Hematocrit 31.4 % (36.0-47.0); Hemoglobin 10.9 g/dL (12.0-16.0); Mean Corpuscular HGB CONC 34.7 g/dL (32.0-36.0); Mean Corpuscular Hemoglobin 32.1 pg (27.0-31.0); Mean Corpuscular Volume 92.4 fL (78.0-98.0); Mean Platelet Volume 12.1 fL (7.4-10.4); Platelet Count 129 10x3/uL (130-400); RBC Distribution Width 25.7 % (11.5-14.5)
[2024-06-14 07:24] LABS: Vancomycin, Random 33.3 ug/mL (See Comment)
[2024-06-14 07:40] LABS: Potassium 4.4 mmol/L (3.5-5.1)
[2024-06-14 07:41] LABS: Anion Gap 11 mmol/L (10-20); BUN (Urea Nitrogen) 7 mg/dL (9.8-20.1); Calc. Creatinine Clearance 101 mL/min (70-130); Calcium 7.5 mg/dL (7.8-10.44); Carbon Dioxide 24 mmol/L (23-31); Chloride 106 mmol/L (98-107); Estimated GFR 100; Glucose 86 mg/dL (80-115); Sodium 137 mmol/L (136-145)
[2024-06-14] MEDS: Morphine 2 MG/ML VIAL SLOW IVP PRN (10:25)
[2024-06-14] MEDS: Ipratropium/Albuterol 3 ML NEB EZPAP SCH (10:28)
[2024-06-14] MEDS: Piperacillin/Tazobactam 3.375 GM in Sodium Chloride 0.9% 100 ML IVPB SCH (17:32)
[2024-06-14] MEDS: guaiFENesin ER 600 MG TAB PO SCH (20:07)
[2024-06-15 10:58] LABS: #Basophils 0.03 10x3/uL (0.0-0.2); %Basophils 0.8 % (0.0-1.0); %Eosinophils 3.1 % (0.0-10.0); %Lymphocytes 34.4 % (21.0-51.0); %Monocytes 8.7 % (0.0-10.0); %Neutrophils 52.2 % (42.0-75.0); Hematocrit 33.5 % (36.0-47.0); Hemoglobin 11.1 g/dL (12.0-16.0); Mean Corpuscular HGB CONC 33.1 g/dL (32.0-36.0); Mean Corpuscular Hemoglobin 32.2 pg (27.0-31.0); Mean Corpuscular Volume 97.1 fL (78.0-98.0); Mean Platelet Volume 12.6 fL (7.4-10.4); Platelet Count 97 10x3/uL (130-400); RBC Distribution Width 25.9 % (11.5-14.5); Red Blood Cell (RBC) Count 3.45 mill/uL (4.20-5.40)
[2024-06-15 11:17] LABS: Anion Gap 11 mmol/L (10-20); BUN (Urea Nitrogen) 6 mg/dL (9.8-20.1); Calc. Creatinine Clearance 108 mL/min (70-130); Calcium 7.4 mg/dL (7.8-10.44); Carbon Dioxide 21 mmol/L (23-31); Chloride 108 mmol/L (98-107); Estimated GFR 101; Glucose 79 mg/dL (80-115); Potassium 3.5 mmol/L (3.5-5.1); Sodium 136 mmol/L (136-145)
[2024-06-15 11:38] LABS: Anisocytosis MODERATE=16-30 cells HPF (0-5); Burr Cells MODERATE= 6-15 cells HPF (0-1); Eosinophils 1 % (0-10); Hypochromia SLIGHT = 6-15 cells HPF (0-5); Large Platelets 5.9 % (0-5); Lymphocytes 30 % (21-51); Macrocytosis MODERATE=16-30 cells HPF (0-5); Monocytes 9 % (0-10); Neutrophil 57 % (42-75); Nucleated RBC (Manual Ct) 3 % (0); Platelet Adequacy Comment Platelets Decreased; Poikilocytosis SLIGHT = 6-15 cells HPF (0-5); Polychromasia SLIGHT = 2-3 cells HPF (0-2); Schistocytes SLIGHT = 2-5 cells HPF (0-1); Smudge Cells 9.9 %
[2024-06-15] MEDS: Potassium Chloride 20 MEQ TAB PO SCH (13:51)
[2024-06-15] MEDS: Acetaminophen 500 MG TAB PO PRN (17:29)
[2024-06-15] MEDS: Lorazepam 2 MG/ML VIAL SLOW IVP PRN (18:48)
[2024-06-16 03:57] LABS: #Basophils 0.03 10x3/uL (0.0-0.2); %Basophils 0.6 % (0.0-1.0); %Eosinophils 3.8 % (0.0-10.0); %Lymphocytes 30.4 % (21.0-51.0); %Monocytes 6.9 % (0.0-10.0); %Neutrophils 57.3 % (42.0-75.0); Hematocrit 34.1 % (36.0-47.0); Hemoglobin 11.3 g/dL (12.0-16.0); Mean Corpuscular HGB CONC 33.1 g/dL (32.0-36.0); Mean Corpuscular Hemoglobin 31.9 pg (27.0-31.0); Mean Corpuscular Volume 96.3 fL (78.0-98.0); Mean Platelet Volume 11.8 fL (7.4-10.4); Platelet Count 99 10x3/uL (130-400); RBC Distribution Width 25.4 % (11.5-14.5); Red Blood Cell (RBC) Count 3.54 mill/uL (4.20-5.40)
[2024-06-16 04:28] LABS: Anion Gap 12 mmol/L (10-20); BUN (Urea Nitrogen) 8 mg/dL (9.8-20.1); Calc. Creatinine Clearance 79 mL/min (70-130); Carbon Dioxide 17 mmol/L (23-31); Chloride 112 mmol/L (98-107); Estimated GFR 90; Glucose 88 mg/dL (80-115); Potassium 4.7 mmol/L (3.5-5.1); Sodium 136 mmol/L (136-145)
[2024-06-16 06:28] LABS: Vancomycin, Random 22.3 ug/mL (See Comment)
[2024-06-16] MEDS: hydrOXYzine 25 MG TAB PO PRN (09:05)
[2024-06-16] MEDS: Lorazepam 2 MG/ML VIAL ONE (17:19)
[2024-06-17] MEDS: traMADol HCl 50 MG TAB PO PRN (05:25)
[2024-06-17 05:26] VITALS: BMI 24.2
[2024-06-17 06:16] LABS: Hematocrit 34.6 % (36.0-47.0); Hemoglobin 11.3 g/dL (12.0-16.0)
[2024-06-17 06:35] LABS: Chloride 113 mmol/L (98-107); Potassium 4.1 mmol/L (3.5-5.1); Sodium 137 mmol/L (136-145)
[2024-06-17 06:36] LABS: Glucose 93 mg/dL (80-115)
[2024-06-17 06:37] LABS: Anion Gap 11 mmol/L (10-20); Carbon Dioxide 17 mmol/L (23-31)
[2024-06-17 06:40] LABS: BUN (Urea Nitrogen) 8 mg/dL (9.8-20.1); Calc. Creatinine Clearance 88 mL/min (70-130); Estimated GFR 97
[2024-06-17 09:25] VITALS: BMI 24.2
[2024-06-18] MEDS: Morphine 2 MG/ML VIAL SLOW IVP PRN (10:36)
[2024-06-18 11:41] LABS: Anion Gap 11 mmol/L (10-20); BUN (Urea Nitrogen) 8 mg/dL (9.8-20.1); Calc. Creatinine Clearance 95 mL/min (70-130); Carbon Dioxide 18 mmol/L (23-31); Chloride 111 mmol/L (98-107); Estimated GFR 99; Glucose 95 mg/dL (80-115); Potassium 4.2 mmol/L (3.5-5.1); Sodium 136 mmol/L (136-145)
[2024-06-18 13:20] LABS: #Basophils 0.04 10x3/uL (0.0-0.2); %Basophils 0.8 % (0.0-1.0); %Eosinophils 3.1 % (0.0-10.0); %Lymphocytes 25.6 % (21.0-51.0); %Monocytes 13.3 % (0.0-10.0); %Neutrophils 56.4 % (42.0-75.0); Hematocrit 33.2 % (36.0-47.0); Hemoglobin 10.9 g/dL (12.0-16.0); Mean Corpuscular HGB CONC 32.8 g/dL (32.0-36.0); Mean Corpuscular Hemoglobin 32.5 pg (27.0-31.0); Mean Corpuscular Volume 99.1 fL (78.0-98.0); Mean Platelet Volume 11.9 fL (7.4-10.4); Platelet Count 144 10x3/uL (130-400); RBC Distribution Width 26.1 % (11.5-14.5); Red Blood Cell (RBC) Count 3.35 mill/uL (4.20-5.40)
[2024-06-18] MEDS ORDERED: Ipratropium/Albuterol 3 ML NEB EZPAP PRN (14:11)
[2024-06-18 14:26] LABS: Anisocytosis SLIGHT = 6-15 cells HPF (0-5); Burr Cells MODERATE= 6-15 cells HPF (0-1); Eosinophils 3 % (0-10); Large Platelets 12.1 % (0-5); Lymphocytes 22 % (21-51); Macrocytosis SLIGHT = 6-15 cells HPF (0-5); Monocytes 5 % (0-10); Neutrophil 68 % (42-75); Platelet Adequacy Comment Platelets Normal; Poikilocytosis MODERATE=16-30 cells HPF (0-5); Polychromasia SLIGHT = 2-3 cells HPF (0-2); Schistocytes SLIGHT = 2-5 cells HPF (0-1); Smudge Cells 8.1 %; Toxic Granulation SLIGHT
[2024-06-18] MEDS: Lidocaine 4% Patch TD SCH (15:04)
[2024-06-18] MEDS: Amoxicillin/Potassium Clav 600 mg/5 ml Oral Suspension PO SCH (21:13)
[2024-06-19] MEDS: Transdermal Patch Removal TOP SCH (00:04)
[2024-06-19 07:32] VITALS: TEMP 98.7
[2024-06-19] MEDS: Lidocaine 4% Patch TD SCH (08:48)
[2024-06-19 11:29] VITALS: BP 137/82
[2024-06-19] MEDS: HYDROcodone/Acetaminophen 5/325 mg Tablet PO PRN (14:16)
[2024-06-19] MEDS ORDERED: Transdermal Patch Removal TOP SCH (21:00)
== END 2024-06-19 18:16 | disposition swing bed (61) | DRG 871 ==
LOC: ERS 03:35 → CCU 06:21 → T4-B 06-16 16:21
PROVIDERS: ADMIT Student in an Organized Health Care Education/Training Program; ATTEND Internal Medicine
PROC: 4A033R1 Measurement of Arterial Saturation, Peripheral, Percutaneous Approach (ICD-10-PCS; 2024-06-12)
PROC: 3E033XZ Introduction of Vasopressor into Peripheral Vein, Percutaneous Approach (ICD-10-PCS; 2024-06-12)
PROC: 3E03329 Introduction of Other Anti-infective into Peripheral Vein, Percutaneous Approach (ICD-10-PCS; 2024-06-12)
PROC: 0W9B3ZZ Drainage of Left Pleural Cavity, Percutaneous Approach (ICD-10-PCS; principal; 2024-06-13)
PROC: 30233N1 Transfusion of Nonautologous Red Blood Cells into Peripheral Vein, Percutaneous Approach (ICD-10-PCS; 2024-06-13)
PROC: 5A0945A Assistance with Respiratory Ventilation, 24-96 Consecutive Hours, High Flow/Velocity Cannula (ICD-10-PCS; 2024-06-14)
PROC: 5A09457 Assistance with Respiratory Ventilation, 24-96 Consecutive Hours, Continuous Positive Airway Pressure (ICD-10-PCS; 2024-06-14)
DX: A41.9 Sepsis, unspecified organism (principal); J10.00 Influenza due to other identified influenza virus with unspecified type of pneumonia; J96.01 Acute respiratory failure with hypoxia; K22.10 Ulcer of esophagus without bleeding; D62 Acute posthemorrhagic anemia; J90 Pleural effusion, not elsewhere classified; J93.9 Pneumothorax, unspecified; E87.6 Hypokalemia; I10 Essential (primary) hypertension; F31.9 Bipolar disorder, unspecified; E03.9 Hypothyroidism, unspecified; Z88.5 Allergy status to narcotic agent; Z98.890 Other specified postprocedural states; D63.8 Anemia in other chronic diseases classified elsewhere
CPT/HCPCS: 36415; 36416; 36430; 36600; 71045; 71250; 80048; 80202; 82805; 82945; 83615; 83735; 83880; 83986; 84100; 84145; 84157; 85014; 85018; 85025; 85060; 86850; 86900; 86901; 87070; 87081; 87149; 87205; 88112; 88305; 89051; 93005; 93010; 94640; 94660; 97139; J1650; J2060; J2272; J2543; J3370; J3475; J7042; J7620; P9016

== ENCOUNTER 2025-03-08 12:27 | Inpatient (IN) | payer MEDICARE ==
[2025-03-08] MEDS ORDERED: Magnesium 2 GM/50 ML BAG (IN WATER) ONE (12:49)
[2025-03-08 13:14] LABS: Hematocrit 49.0 % (36.0-47.0); Hemoglobin 16.3 g/dL (12.0-16.0); Mean Corpuscular Hemoglobin 29.7 pg (27.0-31.0); Mean Corpuscular Volume 89.3 fL (78.0-98.0); Platelet Count 225 10x3/uL (130-400); Red Blood Cell (RBC) Count 5.49 mill/uL (4.20-5.40); White Blood Cell (WBC) Count 21.86 10x3/uL (4.8-10.8)
[2025-03-08 13:23] LABS: Actual Bicarbonate (HCO3v) 19.0 mEq/L (22-28); Analyzer IN Cardio ER; Base Excess -4.5 mEq/L (-2.0 to +3.0); Calcium, Ionized (venous) 1.01 mmol/L (1.16-1.32); Chloride (VBG) 96 mmol/L (98-106); Hematocrit-VBG 53 % (36.0-47.0); Hemoglobin (Hb) 18.1 g/dL (11.7-16.1); Potassium (VBG) 4.97 mmol/L (3.70-5.30); Sodium 131 mmol/L (133-146)
[2025-03-08 13:50] LABS: Dohle Bodies SLIGHT; INR-International Normal Ratio 1.2; Plasma Cells 0 % (0-0); Prothrombin Time 15.6 sec (12.0-14.7); Toxic Granulation SLIGHT
[2025-03-08 13:51] LABS: PTT 28.4 sec (22.9-36.1)
[2025-03-08 13:55] LABS: ALT (SGPT) 78 U/L (Less than 34); AST (SGOT) 174 U/L (11-34); Albumin 1.5 g/dL (3.1-4.5); Alkaline Phosphatase 245 U/L (40-110); Anion Gap 16 mmol/L (10-20); BUN (Urea Nitrogen) 85 mg/dL (9.8-20.1); Bilirubin, Total 0.6 mg/dL (0.3-1.2); Calc. Creatinine Clearance 0 mL/min (70-130); Calcium 8.4 mg/dL (7.8-10.44); Carbon Dioxide 21 mmol/L (23-31); Chloride 98 mmol/L (98-107); Globulin 5.0 g/dL (2.4-3.5); Glucose 111 mg/dL (80-115); Lipase 34 U/L (8-78); Magnesium 2.5 mg/dL (1.6-2.6); Potassium 5.0 mmol/L (3.5-5.1); Sodium 130 mmol/L (136-145)
[2025-03-08] MEDS ORDERED: VANCOMYCIN 2 GRAM/400 ML BAG ONE (13:59)
[2025-03-08 14:16] LABS: CRP, High Sensitivity at Bryan 35.20 mg/dL (< or = 0.5)
[2025-03-08] MEDS ORDERED: Enoxaparin 80 MG (0.8 mL) SYRINGE ONE (18:16)
[2025-03-08] MEDS: VANCOMYCIN 2 GRAM/400 ML Premix BAG IVPB SCH (19:29)
[2025-03-09 01:14] LABS: Cocaine Metabolite Screen Negative (Negative); THC/Cannabinoid Screen Negative (Negative); Tricyclic Screen Negative (Negative)
[2025-03-09] MEDS ORDERED: NOREPINEPHRINE 8 MG/250 ML-D5W 250 ML IVPB SCH (01:15)
[2025-03-09 01:24] LABS: Legionella Urinary Ag Negative (Negative); Strep pneumo Urine Ag NEGATIVE (NEGATIVE)
[2025-03-09 01:34] LABS: Bacteria/HPF Rare-Few HPF (None Seen); Glucose, Urine (Dipstick) Normal (Negative); Leukocyte 250 Leu/uL (Negative); Protein, Urine (Dipstick) 30 mg/dL (Neg-Trace); RBC/HPF 0-3 HPF (0-3); Specific Gravity, Urine 1.017 (1.002-1.036); WBC/HPF 21-50 HPF (0-3)
[2025-03-09] MEDS: Vancomycin 1 GM in Sodium Chloride 0.9% 250 ML 300 ML IVPB SCH (01:57)
[2025-03-09] MEDS: Norepinephrine 8 MG/0.9% NS 250 ML IVPB SCH (02:12)
[2025-03-09 06:26] LABS: Hematocrit 46.9 % (36.0-47.0); Hemoglobin 15.0 g/dL (12.0-16.0); Mean Corpuscular Hemoglobin 29.6 pg (27.0-31.0); Mean Corpuscular Volume 92.7 fL (78.0-98.0); Platelet Count 245 10x3/uL (130-400); Red Blood Cell (RBC) Count 5.06 mill/uL (4.20-5.40); White Blood Cell (WBC) Count 20.82 10x3/uL (4.8-10.8)
[2025-03-09 06:30] LABS: Vancomycin, Random 23.3 ug/mL (See Comment)
[2025-03-09 06:51] LABS: Plasma Cells 1 % (0-0); Platelet Adequacy Comment Platelets Normal; RBC Morphology Within Normal Limits; Smudge Cells 1.0 %
[2025-03-09 07:05] LABS: ALT (SGPT) 60 U/L (Less than 34); AST (SGOT) 112 U/L (11-34); Albumin 1.1 g/dL (3.1-4.5); Alkaline Phosphatase 165 U/L (40-110); Anion Gap 23 mmol/L (10-20); BUN (Urea Nitrogen) 85 mg/dL (9.8-20.1); Bilirubin, Total 0.5 mg/dL (0.3-1.2); Calc. Creatinine Clearance 60 mL/min (70-130); Calcium 7.2 mg/dL (7.8-10.44); Carbon Dioxide 12 mmol/L (23-31); Chloride 109 mmol/L (98-107); Globulin 4.2 g/dL (2.4-3.5); Glucose 113 mg/dL (80-115); Magnesium 2.8 mg/dL (1.6-2.6); Potassium 5.0 mmol/L (3.5-5.1); Sodium 139 mmol/L (136-145)
[2025-03-09] MEDS: Potassium Chloride 20 MEQ in Premix 1 BAG IVPB SCH (08:33)
[2025-03-09] MEDS: Enoxaparin 80 MG (0.8 mL) SYRINGE SC SCH ×2 (08:34→21:02)
[2025-03-09] MEDS: Multivit, Therapeutic 1 TAB PO SCH (08:35)
[2025-03-09] MEDS: Folic Acid 1 MG TAB PO SCH (08:35)
[2025-03-09] MEDS: Nystatin 500,000 UNITS/5 ML UDCUP SSW SCH (08:35)
[2025-03-09] MEDS: Mupirocin 1 GM TUBE NASAL DECOLONIZATION NASAL SCH (08:35)
[2025-03-09] MEDS: Vancomycin 1 GM in Premix 1 BAG IVPB SCH (14:07)
[2025-03-10 06:57] LABS: Vancomycin, Random 25.8 ug/mL (See Comment)
[2025-03-10 07:13] LABS: Calc. Creatinine Clearance 77.0 mL/min (70-130)
[2025-03-10] MEDS ORDERED: Lidocaine 1% PF 5 ML VIAL ONE (10:26)
[2025-03-10] MEDS ORDERED: Sodium Bicarbonate 2.5 MEQ/5 ML SDV ONE (10:26)
[2025-03-10 11:36] VITALS: BMI 30.9
[2025-03-10 14:21] LABS: Synovial Fluid, Glucose 9.0 mg/dL (Not Available); Synovial Fluid, Protein 4.6 g/dL (Not Available)
[2025-03-10] MEDS ORDERED: Enoxaparin 80 MG (0.8 mL) SYRINGE SC SCH (21:00)
[2025-03-11 03:32] LABS: Hematocrit 35.8 % (36.0-47.0); Hemoglobin 11.9 g/dL (12.0-16.0); Mean Corpuscular Hemoglobin 30.0 pg (27.0-31.0); Mean Corpuscular Volume 90.2 fL (78.0-98.0); Platelet Count 220 10x3/uL (130-400); Red Blood Cell (RBC) Count 3.97 mill/uL (4.20-5.40); White Blood Cell (WBC) Count 15.21 10x3/uL (4.8-10.8)
[2025-03-11 03:47] LABS: Anion Gap 11 mmol/L (10-20); BUN (Urea Nitrogen) 46 mg/dL (9.8-20.1); Calc. Creatinine Clearance 112 mL/min (70-130); Calcium 7.5 mg/dL (7.8-10.44); Carbon Dioxide 17 mmol/L (23-31); Chloride 116 mmol/L (98-107); Glucose 101 mg/dL (80-115); Potassium 3.8 mmol/L (3.5-5.1); Sodium 140 mmol/L (136-145)
[2025-03-11 04:33] LABS: Platelet Adequacy Comment Platelets Normal; RBC Morphology Within Normal Limits
[2025-03-11] MEDS ORDERED: Etomidate 40 MG (20 mL) VIAL ONE (09:19)
[2025-03-11] MEDS ORDERED: Rocuronium Bromide 10 MG/ML (10ML VIAL) ONE (09:19)
[2025-03-11] MEDS ORDERED: fentaNYL PF 100 MCG/2 ML SYRINGE ONE (09:19)
[2025-03-11] MEDS ORDERED: Sevoflurane 250 ML INH ANEST BOTTLE ONE (10:23)
[2025-03-11] MEDS ORDERED: Ondansetron PF 4 MG/2 ML Vial ONE (10:53)
[2025-03-11] MEDS ORDERED: SUGAMMADEX SODIUM 200 MG/2 ML VIAL ONE (10:54)
[2025-03-11] MEDS: Ketorolac Tromethamine 30 MG (1 mL) VIAL IVP PRN (16:31)
[2025-03-11] MEDS: LevoFLOXacin 750 mg/D5W 750 MG in Premix 1 BAG IVPB SCH (16:56)
[2025-03-11] MEDS: HYDROcodone/Acetaminophen 5/325 mg Tablet PO PRN (17:05)
[2025-03-11] MEDS: Communication Order-Pharmacy FS ONE (18:14)
[2025-03-11 21:36] LABS: Mycoplasma pneumoniae IgG AB 1301 U/mL (0-99); Mycoplasma pneumoniae IgM AB Less than 770 U/mL (0-769)
[2025-03-11] MEDS: Enoxaparin 80 MG (0.8 mL) SYRINGE SC SCH (21:42)
[2025-03-11 23:14] LABS: Hematocrit 30.3 % (36.0-47.0); Hemoglobin 9.7 g/dL (12.0-16.0); Platelet Count 145 10x3/uL (130-400)
[2025-03-11] MEDS: Thiamine 100 MG TAB PO SCH (23:31)
[2025-03-12 05:31] LABS: #Basophils 0.04 10x3/uL (0.0-0.2); #Eosinophils 0.07 10x3/uL (0.0-0.7); #Monocytes 0.45 10x3/uL (0.11-0.59); #Neutrophils 14.19 10x3/uL (1.40-6.50); %Basophils 0.2 % (0.0-1.0); %Eosinophils 0.4 % (0.0-10.0); %Lymphocytes 6.5 % (21.0-51.0); %Monocytes 2.8 % (0.0-10.0); %Neutrophils 88.4 % (42.0-75.0); Hematocrit 34.7 % (36.0-47.0); Hemoglobin 11.2 g/dL (12.0-16.0); Mean Corpuscular Hemoglobin 30.4 pg (27.0-31.0); Mean Corpuscular Volume 94.0 fL (78.0-98.0); Platelet Count 179 10x3/uL (130-400); Red Blood Cell (RBC) Count 3.69 mill/uL (4.20-5.40); White Blood Cell (WBC) Count 16.08 10x3/uL (4.8-10.8)
[2025-03-12 05:48] LABS: Anion Gap 9 mmol/L (10-20); BUN (Urea Nitrogen) 36 mg/dL (9.8-20.1); Calc. Creatinine Clearance 110 mL/min (70-130); Calcium 7.2 mg/dL (7.8-10.44); Carbon Dioxide 15 mmol/L (23-31); Chloride 117 mmol/L (98-107); Glucose 110 mg/dL (80-115); Potassium 3.9 mmol/L (3.5-5.1); Sodium 137 mmol/L (136-145)
[2025-03-12] MEDS: Enoxaparin 100 MG (1 mL) SYRINGE SC SCH (21:13)
[2025-03-13 06:19] LABS: #Basophils Less than 0.03 10x3/uL (0.0-0.2); #Eosinophils 0.13 10x3/uL (0.0-0.7); #Monocytes 0.11 10x3/uL (0.11-0.59); #Neutrophils 9.27 10x3/uL (1.40-6.50); %Basophils 0.1 % (0.0-1.0); %Eosinophils 1.2 % (0.0-10.0); %Lymphocytes 6.4 % (21.0-51.0); %Monocytes 1.1 % (0.0-10.0); %Neutrophils 89.1 % (42.0-75.0); Hematocrit 39.1 % (36.0-47.0); Hemoglobin 12.1 g/dL (12.0-16.0); Mean Corpuscular Hemoglobin 29.0 pg (27.0-31.0); Mean Corpuscular Volume 93.8 fL (78.0-98.0); Platelet Count 180 10x3/uL (130-400); Red Blood Cell (RBC) Count 4.17 mill/uL (4.20-5.40); White Blood Cell (WBC) Count 10.41 10x3/uL (4.8-10.8)
[2025-03-13 06:41] LABS: Anion Gap 10 mmol/L (10-20); BUN (Urea Nitrogen) 22 mg/dL (9.8-20.1); Calc. Creatinine Clearance 146 mL/min (70-130); Calcium 7.4 mg/dL (7.8-10.44); Carbon Dioxide 16 mmol/L (23-31); Chloride 112 mmol/L (98-107); Glucose 78 mg/dL (80-115); Potassium 3.4 mmol/L (3.5-5.1); Sodium 135 mmol/L (136-145)
[2025-03-13] MEDS: Potassium Bicarbonate/Cit Ac 20 MEQ TAB PO SCH (10:52)
[2025-03-13] MEDS: Cyclobenzaprine 10 MG TAB PO SCH (21:09)
[2025-03-13] MEDS: diphenhydrAMINE 25 MG CAP PO PRN (21:12)
[2025-03-14] MEDS ORDERED: Glucagon 1 MG/ML KIT IM PRN (06:30)
[2025-03-14] MEDS ORDERED: Dextrose 50% Abboject 50 ML SYRINGE SLOW IVP PRN (06:30)
[2025-03-14 10:13] LABS: Anion Gap 9 mmol/L (10-20); BUN (Urea Nitrogen) 18 mg/dL (9.8-20.1); Calc. Creatinine Clearance 175 mL/min (70-130); Calcium 7.0 mg/dL (7.8-10.44); Carbon Dioxide 15 mmol/L (23-31); Chloride 113 mmol/L (98-107); Glucose 118 mg/dL (80-115); Hematocrit 27.7 % (36.0-47.0); Hemoglobin 8.5 g/dL (12.0-16.0); Mean Corpuscular Hemoglobin 29.8 pg (27.0-31.0); Mean Corpuscular Volume 97.2 fL (78.0-98.0); Platelet Count 152 10x3/uL (130-400); Potassium 3.4 mmol/L (3.5-5.1); Red Blood Cell (RBC) Count 2.85 mill/uL (4.20-5.40); Sodium 134 mmol/L (136-145); White Blood Cell (WBC) Count 12.01 10x3/uL (4.8-10.8)
[2025-03-14 10:23] LABS: CRP, High Sensitivity at Bryan 16.93 mg/dL (< or = 0.5)
[2025-03-14 10:35] LABS: Anisocytosis SLIGHT = 6-15 cells HPF (0-5); Burr Cells MODERATE= 6-15 cells HPF (0-1); Macrocytosis SLIGHT = 6-15 cells HPF (0-5); Platelet Adequacy Comment Platelets Normal; Poikilocytosis SLIGHT = 6-15 cells HPF (0-5); Polychromasia SLIGHT = 2-3 cells HPF (0-2); Schistocytes SLIGHT = 2-5 cells HPF (0-1); Smudge Cells 3.0 %
[2025-03-14] MEDS ORDERED: Potassium Bicarbonate/Cit Ac 20 MEQ TAB PER TUBE SCH (11:15)
[2025-03-14] MEDS: Potassium Bicarbonate/Cit Ac 20 MEQ TAB PO SCH (11:17)
[2025-03-14 14:35] LABS: Hematocrit 26.6 % (36.0-47.0); Hemoglobin 8.3 g/dL (12.0-16.0); Mean Corpuscular Hemoglobin 30.3 pg (27.0-31.0); Mean Corpuscular Volume 97.1 fL (78.0-98.0); Platelet Count 169 10x3/uL (130-400); Red Blood Cell (RBC) Count 2.74 mill/uL (4.20-5.40); White Blood Cell (WBC) Count 12.11 10x3/uL (4.8-10.8)
[2025-03-15] MEDS ORDERED: Sodium Bicarbonate 2.5 MEQ/5 ML SDV ONE (08:07)
[2025-03-15] MEDS ORDERED: Lidocaine 1% w/Epinephrine 1:100K 20 ML VIAL ONE (08:07)
[2025-03-15] MEDS: HYDROcodone/Acetaminophen 7.5/325 mg Tablet PO PRN (16:58)
[2025-03-16 05:42] LABS: Anion Gap 8 mmol/L (10-20); BUN (Urea Nitrogen) 18 mg/dL (9.8-20.1); Calc. Creatinine Clearance 168 mL/min (70-130); Calcium 7.3 mg/dL (7.8-10.44); Carbon Dioxide 18 mmol/L (23-31); Chloride 111 mmol/L (98-107); Glucose 84 mg/dL (80-115); Potassium 3.7 mmol/L (3.5-5.1); Sodium 133 mmol/L (136-145)
[2025-03-16 05:53] LABS: CRP, High Sensitivity at Bryan 19.39 mg/dL (< or = 0.5)
[2025-03-16 06:16] LABS: Hematocrit 15.9 % (36.0-47.0); Hemoglobin 5.1 g/dL (12.0-16.0); Mean Corpuscular Hemoglobin 29.8 pg (27.0-31.0); Mean Corpuscular Volume 93.0 fL (78.0-98.0); Platelet Count 217 10x3/uL (130-400); Red Blood Cell (RBC) Count 1.71 mill/uL (4.20-5.40); White Blood Cell (WBC) Count 8.67 10x3/uL (4.8-10.8)
[2025-03-16 06:47] LABS: Anisocytosis SLIGHT = 6-15 cells HPF (0-5); Platelet Adequacy Comment Platelets Normal; Polychromasia SLIGHT = 2-3 cells HPF (0-2)
[2025-03-16 14:30] LABS: #Basophils Less than 0.03 10x3/uL (0.0-0.2); #Eosinophils 0.14 10x3/uL (0.0-0.7); #Monocytes 0.34 10x3/uL (0.11-0.59); #Neutrophils 6.76 10x3/uL (1.40-6.50); %Basophils 0.1 % (0.0-1.0); %Eosinophils 1.6 % (0.0-10.0); %Lymphocytes 13.0 % (21.0-51.0); %Monocytes 4.0 % (0.0-10.0); %Neutrophils 78.8 % (42.0-75.0); Hematocrit 18.8 % (36.0-47.0); Hemoglobin 6.1 g/dL (12.0-16.0); Mean Corpuscular Hemoglobin 29.8 pg (27.0-31.0); Mean Corpuscular Volume 91.7 fL (78.0-98.0); Platelet Count 230 10x3/uL (130-400); Red Blood Cell (RBC) Count 2.05 mill/uL (4.20-5.40); White Blood Cell (WBC) Count 8.57 10x3/uL (4.8-10.8)
[2025-03-17 05:11] LABS: #Basophils 0.03 10x3/uL (0.0-0.2); #Eosinophils 0.10 10x3/uL (0.0-0.7); #Monocytes 0.39 10x3/uL (0.11-0.59); #Neutrophils 6.41 10x3/uL (1.40-6.50); %Basophils 0.4 % (0.0-1.0); %Eosinophils 1.2 % (0.0-10.0); %Lymphocytes 14.7 % (21.0-51.0); %Monocytes 4.7 % (0.0-10.0); %Neutrophils 77.2 % (42.0-75.0); Hematocrit 20.6 % (36.0-47.0); Hemoglobin 6.6 g/dL (12.0-16.0); Mean Corpuscular Hemoglobin 29.3 pg (27.0-31.0); Mean Corpuscular Volume 91.6 fL (78.0-98.0); Platelet Count 216 10x3/uL (130-400); Red Blood Cell (RBC) Count 2.25 mill/uL (4.20-5.40); White Blood Cell (WBC) Count 8.30 10x3/uL (4.8-10.8)
[2025-03-17 05:28] LABS: Anion Gap 9 mmol/L (10-20); BUN (Urea Nitrogen) 12 mg/dL (9.8-20.1); Calc. Creatinine Clearance 171 mL/min (70-130); Calcium 7.3 mg/dL (7.8-10.44); Carbon Dioxide 18 mmol/L (23-31); Chloride 110 mmol/L (98-107); Glucose 99 mg/dL (80-115); Potassium 3.9 mmol/L (3.5-5.1); Sodium 133 mmol/L (136-145)
[2025-03-17 05:39] LABS: CRP, High Sensitivity at Bryan 16.20 mg/dL (< or = 0.5)
[2025-03-17] MEDS: Senokot S 8.6-50 MG TAB PO SCH (20:01)
[2025-03-17 23:01] LABS: Hematocrit 25.9 % (36.0-47.0); Hemoglobin 8.5 g/dL (12.0-16.0)
[2025-03-18] MEDS: Pantoprazole 40 MG VIAL IVP SCH ×2 (03:35→08:38)
[2025-03-18 08:15] LABS: #Basophils 0.04 10x3/uL (0.0-0.2); #Eosinophils 0.13 10x3/uL (0.0-0.7); #Monocytes 0.39 10x3/uL (0.11-0.59); #Neutrophils 6.30 10x3/uL (1.40-6.50); %Basophils 0.5 % (0.0-1.0); %Eosinophils 1.6 % (0.0-10.0); %Lymphocytes 13.0 % (21.0-51.0); %Monocytes 4.9 % (0.0-10.0); %Neutrophils 78.4 % (42.0-75.0); Hematocrit 28.5 % (36.0-47.0); Hemoglobin 9.2 g/dL (12.0-16.0); Mean Corpuscular Hemoglobin 29.6 pg (27.0-31.0); Mean Corpuscular Volume 91.6 fL (78.0-98.0); Platelet Count 240 10x3/uL (130-400); Red Blood Cell (RBC) Count 3.11 mill/uL (4.20-5.40); White Blood Cell (WBC) Count 8.03 10x3/uL (4.8-10.8)
[2025-03-18 08:29] LABS: Anion Gap 10 mmol/L (10-20); BUN (Urea Nitrogen) 11 mg/dL (9.8-20.1); Calc. Creatinine Clearance 179 mL/min (70-130); Calcium 7.9 mg/dL (7.8-10.44); Carbon Dioxide 19 mmol/L (23-31); Chloride 109 mmol/L (98-107); Glucose 93 mg/dL (80-115); Potassium 3.6 mmol/L (3.5-5.1); Sodium 134 mmol/L (136-145)
[2025-03-18 08:40] LABS: CRP, High Sensitivity at Bryan 19.97 mg/dL (< or = 0.5)
[2025-03-19] MEDS: Enoxaparin 40 MG (0.4 mL) SYRINGE SC SCH (08:49)
[2025-03-19 12:01] LABS: #Basophils 0.07 10x3/uL (0.0-0.2); #Eosinophils 0.10 10x3/uL (0.0-0.7); #Monocytes 0.42 10x3/uL (0.11-0.59); #Neutrophils 6.70 10x3/uL (1.40-6.50); %Basophils 0.8 % (0.0-1.0); %Eosinophils 1.1 % (0.0-10.0); %Lymphocytes 16.4 % (21.0-51.0); %Monocytes 4.8 % (0.0-10.0); %Neutrophils 76.0 % (42.0-75.0); Hematocrit 33.5 % (36.0-47.0); Hemoglobin 10.6 g/dL (12.0-16.0); Mean Corpuscular Hemoglobin 29.3 pg (27.0-31.0); Mean Corpuscular Volume 92.5 fL (78.0-98.0); Platelet Count 326 10x3/uL (130-400); Red Blood Cell (RBC) Count 3.62 mill/uL (4.20-5.40); White Blood Cell (WBC) Count 8.82 10x3/uL (4.8-10.8)
[2025-03-19 12:21] LABS: Anion Gap 12 mmol/L (10-20); BUN (Urea Nitrogen) 12 mg/dL (9.8-20.1); Calc. Creatinine Clearance 175 mL/min (70-130); Calcium 8.0 mg/dL (7.8-10.44); Carbon Dioxide 19 mmol/L (23-31); Chloride 109 mmol/L (98-107); Glucose 103 mg/dL (80-115); Potassium 3.9 mmol/L (3.5-5.1); Sodium 136 mmol/L (136-145)
[2025-03-19 12:32] LABS: CRP, High Sensitivity at Bryan 18.04 mg/dL (< or = 0.5)
[2025-03-19] MEDS ORDERED: Iopamidol-370 76% 500 ML MDV (1 ML CHARGE) ONE (14:49)
[2025-03-20 05:57] LABS: Hematocrit 27.1 % (36.0-47.0); Hemoglobin 8.8 g/dL (12.0-16.0); Platelet Count 289 10x3/uL (130-400)
[2025-03-20 06:10] LABS: Hematocrit 27.0 % (36.0-47.0); Hemoglobin 8.6 g/dL (12.0-16.0); Mean Corpuscular Hemoglobin 29.2 pg (27.0-31.0); Mean Corpuscular Volume 91.5 fL (78.0-98.0); Platelet Count 282 10x3/uL (130-400); Red Blood Cell (RBC) Count 2.95 mill/uL (4.20-5.40); White Blood Cell (WBC) Count 6.80 10x3/uL (4.8-10.8)
[2025-03-20 06:13] LABS: Anion Gap 7 mmol/L (10-20); BUN (Urea Nitrogen) 11 mg/dL (9.8-20.1); CRP, High Sensitivity at Bryan 14.65 mg/dL (< or = 0.5); Calc. Creatinine Clearance 192 mL/min (70-130); Calcium 7.7 mg/dL (7.8-10.44); Carbon Dioxide 22 mmol/L (23-31); Chloride 108 mmol/L (98-107); Glucose 82 mg/dL (80-115); Potassium 4.0 mmol/L (3.5-5.1); Sodium 133 mmol/L (136-145)
[2025-03-20 06:43] LABS: Platelet Adequacy Comment Platelets Normal; Polychromasia MODERATE = 3-4 cells HPF (0-2); Smudge Cells 10.1 %
[2025-03-20] MEDS ORDERED: Bupivacaine 0.25% HCL 30 ML VIAL ONE (12:37)
[2025-03-20] MEDS ORDERED: Famotidine/PF 20 mg/2ml Vial ONE (12:38)
[2025-03-20] MEDS ORDERED: fentaNYL PF 100 MCG/2 ML SYRINGE ONE (12:45)
[2025-03-20] MEDS ORDERED: Glycopyrrolate 0.2 MG/ML 5 ML SYRINGE ONE (12:46)
[2025-03-20] MEDS ORDERED: SUCCINYLCHOLINE/SOD CL,ISO/PF 200 MG/10 ML SYRINGE FS ONE (12:46)
[2025-03-20] MEDS ORDERED: Lidocaine 1% PF 5 ML VIAL ONE (12:46)
[2025-03-20] MEDS ORDERED: PHENYLEPHRINE-NS 100 MCG/ML 10 ML SYRINGE ONE (15:07)
[2025-03-20] MEDS ORDERED: CEFAZOLIN 1 GM VIAL ONE (15:07)
[2025-03-20] MEDS ORDERED: Rocuronium Bromide 10 MG/ML (10ML VIAL) ONE (15:12)
[2025-03-20] MEDS ORDERED: SUGAMMADEX SODIUM 200 MG/2 ML VIAL ONE ×2 (15:12→15:27)
[2025-03-20] MEDS ORDERED: Etomidate 40 MG (20 mL) VIAL ONE (15:47)
[2025-03-20] MEDS ORDERED: Ventilator Sedation Protocol 1 EACH FS SCH (16:43)
[2025-03-20] MEDS ORDERED: DISCONTINUE PREVIOUS NARCOTIC PAIN MEDICATIONS AND BENZODIAZEPINES FS SCH (16:45)
[2025-03-20] MEDS ORDERED: Propofol BOLUS 1,000 MG/100 ML VIAL IV PRN (16:45)
[2025-03-20] MEDS ORDERED: Fentanyl BOLUS 100 ML IVPB PRN (16:45)
[2025-03-20 17:36] LABS: #Basophils 0.04 10x3/uL (0.0-0.2); #Eosinophils 0.03 10x3/uL (0.0-0.7); #Monocytes 0.30 10x3/uL (0.11-0.59); #Neutrophils 12.19 10x3/uL (1.40-6.50); %Basophils 0.3 % (0.0-1.0); %Eosinophils 0.2 % (0.0-10.0); %Lymphocytes 3.8 % (21.0-51.0); %Monocytes 2.3 % (0.0-10.0); %Neutrophils 92.2 % (42.0-75.0); Hematocrit 29.3 % (36.0-47.0); Hemoglobin 9.3 g/dL (12.0-16.0); Mean Corpuscular Hemoglobin 29.4 pg (27.0-31.0); Mean Corpuscular Volume 92.7 fL (78.0-98.0); Platelet Count 326 10x3/uL (130-400); Red Blood Cell (RBC) Count 3.16 mill/uL (4.20-5.40); White Blood Cell (WBC) Count 13.22 10x3/uL (4.8-10.8)
[2025-03-20 17:57] LABS: ALT (SGPT) 17 U/L (Less than 34); AST (SGOT) 47 U/L (11-34); Albumin 1.1 g/dL (3.1-4.5); Alkaline Phosphatase 113 U/L (40-110); Anion Gap 11 mmol/L (10-20); BUN (Urea Nitrogen) 10 mg/dL (9.8-20.1); Bilirubin, Total 0.5 mg/dL (0.3-1.2); Calc. Creatinine Clearance 161 mL/min (70-130); Calcium 7.5 mg/dL (7.8-10.44); Carbon Dioxide 18 mmol/L (23-31); Chloride 109 mmol/L (98-107); Globulin 3.8 g/dL (2.4-3.5); Glucose 123 mg/dL (80-115); Magnesium 1.5 mg/dL (1.6-2.6); Potassium 4.3 mmol/L (3.5-5.1); Sodium 134 mmol/L (136-145)
[2025-03-20 18:33] LABS: Actual Bicarbonate (HCO3a) 16.6 mEq/L (22-28); Base Excess (BEa) -7.0 mEq/L (-2.0 to +3.0); CO2 Tension 27.2 mmHg (35.0-45.0); Calcium, Ionized (arterial) 1.11 mmol/L (1.12-1.30); Hematocrit-ABG 29 % (36.0-47.0); Hemoglobin (Hb) 9.7 g/dL (12.0-16.0); O2 Tension (PaO2), arterial 178.2 mmHg (> 80.0); Potassium - ABG Lab 3.85 mmol/L (3.70-5.30); pH, Arterial 7.404 (7.35-7.45)
[2025-03-20 18:35] LABS: Puncture Site Left Radial artery
[2025-03-20] MEDS ORDERED: PHOS-NAK 1 PKT PACK PO PRN (20:00)
[2025-03-20] MEDS ORDERED: Potassium Chloride 20 MEQ in Premix 1 BAG IVPB PRN (20:00)
[2025-03-20] MEDS: Magnesium Sulfate In Water 4 GM in Premix 1 BAG IVPB PRN (21:57)
[2025-03-20] MEDS: Magnesium 2 GM/50 ML(in water) 2 GM in Premix 1 BAG IVPB PRN (22:21)
[2025-03-21 03:32] LABS: #Basophils Less than 0.03 10x3/uL (0.0-0.2); #Eosinophils Less than 0.03 10x3/uL (0.0-0.7); #Monocytes 0.34 10x3/uL (0.11-0.59); #Neutrophils 7.81 10x3/uL (1.40-6.50); %Basophils 0.2 % (0.0-1.0); %Eosinophils 0.0 % (0.0-10.0); %Lymphocytes 9.8 % (21.0-51.0); %Monocytes 3.7 % (0.0-10.0); %Neutrophils 85.3 % (42.0-75.0); Hematocrit 27.1 % (36.0-47.0); Hemoglobin 8.5 g/dL (12.0-16.0); Mean Corpuscular Hemoglobin 28.9 pg (27.0-31.0); Mean Corpuscular Volume 92.2 fL (78.0-98.0); Platelet Count 296 10x3/uL (130-400); Red Blood Cell (RBC) Count 2.94 mill/uL (4.20-5.40); White Blood Cell (WBC) Count 9.16 10x3/uL (4.8-10.8)
[2025-03-21 03:50] LABS: Magnesium 2.1 mg/dL (1.6-2.6)
[2025-03-21 03:52] LABS: ALT (SGPT) 15 U/L (Less than 34); AST (SGOT) 32 U/L (11-34); Albumin 1.1 g/dL (3.1-4.5); Alkaline Phosphatase 104 U/L (40-110); Anion Gap 9 mmol/L (10-20); BUN (Urea Nitrogen) 11 mg/dL (9.8-20.1); Bilirubin, Total 0.3 mg/dL (0.3-1.2); Calc. Creatinine Clearance 171 mL/min (70-130); Calcium 7.8 mg/dL (7.8-10.44); Carbon Dioxide 19 mmol/L (23-31); Chloride 109 mmol/L (98-107); Globulin 3.7 g/dL (2.4-3.5); Glucose 133 mg/dL (80-115); Potassium 3.9 mmol/L (3.5-5.1); Sodium 133 mmol/L (136-145)
[2025-03-21 04:06] LABS: CRP, High Sensitivity at Bryan 19.05 mg/dL (< or = 0.5)
[2025-03-22] MEDS: HYDROcodone/Acetaminophen 5/325 mg Tablet PO PRN (09:17)
[2025-03-22 10:47] LABS: ALT (SGPT) 13 U/L (Less than 34); AST (SGOT) 28 U/L (11-34); Albumin 1.1 g/dL (3.1-4.5); Alkaline Phosphatase 97 U/L (40-110); Anion Gap 9 mmol/L (10-20); BUN (Urea Nitrogen) 11 mg/dL (9.8-20.1); Bilirubin, Total 0.3 mg/dL (0.3-1.2); Calc. Creatinine Clearance 146 mL/min (70-130); Calcium 7.8 mg/dL (7.8-10.44); Carbon Dioxide 17 mmol/L (23-31); Chloride 114 mmol/L (98-107); Globulin 3.4 g/dL (2.4-3.5); Glucose 89 mg/dL (80-115); Magnesium 1.8 mg/dL (1.6-2.6); Potassium 3.6 mmol/L (3.5-5.1); Sodium 136 mmol/L (136-145)
[2025-03-22 14:01] LABS: #Basophils 0.06 10x3/uL (0.0-0.2); #Eosinophils 0.15 10x3/uL (0.0-0.7); #Monocytes 0.38 10x3/uL (0.11-0.59); #Neutrophils 5.31 10x3/uL (1.40-6.50); %Basophils 0.9 % (0.0-1.0); %Eosinophils 2.1 % (0.0-10.0); %Lymphocytes 15.2 % (21.0-51.0); %Monocytes 5.4 % (0.0-10.0); %Neutrophils 75.5 % (42.0-75.0); Hematocrit 27.4 % (36.0-47.0); Hemoglobin 8.4 g/dL (12.0-16.0); Mean Corpuscular Hemoglobin 29.0 pg (27.0-31.0); Mean Corpuscular Volume 94.5 fL (78.0-98.0); Platelet Count 333 10x3/uL (130-400); Red Blood Cell (RBC) Count 2.90 mill/uL (4.20-5.40); White Blood Cell (WBC) Count 7.03 10x3/uL (4.8-10.8)
[2025-03-23 01:48] LABS: Hematocrit 31.7 % (36.0-47.0); Hemoglobin 9.4 g/dL (12.0-16.0); Platelet Count 339 10x3/uL (130-400)
[2025-03-23 05:42] LABS: ALT (SGPT) 14 U/L (Less than 34); AST (SGOT) 28 U/L (11-34); Albumin 1.3 g/dL (3.1-4.5); Alkaline Phosphatase 103 U/L (40-110); Anion Gap 11 mmol/L (10-20); BUN (Urea Nitrogen) 12 mg/dL (9.8-20.1); Bilirubin, Total 0.4 mg/dL (0.3-1.2); Calc. Creatinine Clearance 161 mL/min (70-130); Calcium 7.9 mg/dL (7.8-10.44); Carbon Dioxide 18 mmol/L (23-31); Chloride 111 mmol/L (98-107); Globulin 3.7 g/dL (2.4-3.5); Glucose 73 mg/dL (80-115); Magnesium 1.9 mg/dL (1.6-2.6); Potassium 4.0 mmol/L (3.5-5.1); Sodium 136 mmol/L (136-145)
[2025-03-23 17:32] LABS: #Basophils 0.05 10x3/uL (0.0-0.2); #Eosinophils 0.13 10x3/uL (0.0-0.7); #Monocytes 0.46 10x3/uL (0.11-0.59); #Neutrophils 4.00 10x3/uL (1.40-6.50); %Basophils 0.9 % (0.0-1.0); %Eosinophils 2.3 % (0.0-10.0); %Lymphocytes 17.7 % (21.0-51.0); %Monocytes 8.1 % (0.0-10.0); %Neutrophils 70.1 % (42.0-75.0); Hematocrit 35.2 % (36.0-47.0); Hemoglobin 10.9 g/dL (12.0-16.0); Mean Corpuscular Hemoglobin 28.7 pg (27.0-31.0); Mean Corpuscular Volume 92.6 fL (78.0-98.0); Platelet Count 323 10x3/uL (130-400); Red Blood Cell (RBC) Count 3.80 mill/uL (4.20-5.40); White Blood Cell (WBC) Count 5.70 10x3/uL (4.8-10.8)
[2025-03-24 05:19] LABS: #Basophils 0.03 10x3/uL (0.0-0.2); #Eosinophils 0.27 10x3/uL (0.0-0.7); #Monocytes 0.58 10x3/uL (0.11-0.59); #Neutrophils 4.08 10x3/uL (1.40-6.50); %Basophils 0.5 % (0.0-1.0); %Eosinophils 4.2 % (0.0-10.0); %Lymphocytes 22.5 % (21.0-51.0); %Monocytes 8.9 % (0.0-10.0); %Neutrophils 62.7 % (42.0-75.0); Hematocrit 27.5 % (36.0-47.0); Hemoglobin 8.6 g/dL (12.0-16.0); Mean Corpuscular Hemoglobin 28.8 pg (27.0-31.0); Mean Corpuscular Volume 92.0 fL (78.0-98.0); Platelet Count 358 10x3/uL (130-400); Red Blood Cell (RBC) Count 2.99 mill/uL (4.20-5.40); White Blood Cell (WBC) Count 6.50 10x3/uL (4.8-10.8)
[2025-03-24 05:44] LABS: Magnesium 1.9 mg/dL (1.6-2.6)
[2025-03-24 09:22] VITALS: BMI 34.7
[2025-03-25] MEDS: Apixaban 5 MG TAB PO SCH (20:58)
[2025-03-26 05:12] LABS: Hematocrit 33.0 % (36.0-47.0); Hemoglobin 10.3 g/dL (12.0-16.0); Platelet Count 464 10x3/uL (130-400)
[2025-03-26] MEDS ORDERED: Sodium Bicarbonate 2.5 MEQ/5 ML SDV ONE (08:01)
[2025-03-26] MEDS ORDERED: Lidocaine 1% w/Epinephrine 1:100K 20 ML VIAL ONE (08:01)
[2025-03-26] MEDS: Fluconazole 100 MG TAB PO SCH (12:19)
[2025-03-26] MEDS: LevoFLOXacin 750 mg/D5W 750 MG in Premix 1 BAG IVPB SCH (12:21)
[2025-03-27] MEDS: HYDROcodone/Acetaminophen 10/325 mg Tablet PO PRN (12:09)
[2025-03-27] MEDS: HYDROcodone/Acetaminophen 7.5/325 mg Tablet PO PRN (23:33)
[2025-03-29 08:19] LABS: Hematocrit 32.9 % (36.0-47.0); Hemoglobin 9.9 g/dL (12.0-16.0); Platelet Count 490 10x3/uL (130-400)
[2025-03-31 14:33] VITALS: TEMP 98.5
[2025-03-31 14:48] VITALS: BP 133/75
== END 2025-03-31 16:27 | DRG 853 ==
LOC: ERS 12:27 → SUATTDRO 12:27 → ERHOLD 17:41 → IMCU/EMU 22:27 → T4-A 03-10 11:12 → CCU 03-20 16:34 → T4-A 03-22 16:10
PROVIDERS: ADMIT Family Medicine; ATTEND Student in an Organized Health Care Education/Training Program
PROC: 5A09357 Assistance with Respiratory Ventilation, Less than 24 Consecutive Hours, Continuous Positive Airway Pressure (ICD-10-PCS; 2025-03-08)
PROC: 3E033XZ Introduction of Vasopressor into Peripheral Vein, Percutaneous Approach (ICD-10-PCS; 2025-03-09)
PROC: 3E04329 Introduction of Other Anti-infective into Central Vein, Percutaneous Approach (ICD-10-PCS; 2025-03-09)
PROC: 3E043XZ Introduction of Vasopressor into Central Vein, Percutaneous Approach (ICD-10-PCS; 2025-03-09)
PROC: 0J9L0ZZ Drainage of Right Upper Leg Subcutaneous Tissue and Fascia, Open Approach (ICD-10-PCS; principal; 2025-03-12)
PROC: 0SP909Z Removal of Liner from Right Hip Joint, Open Approach (ICD-10-PCS; 2025-03-12)
PROC: 0SUA09Z Supplement Right Hip Joint, Acetabular Surface with Liner, Open Approach (ICD-10-PCS; 2025-03-12)
PROC: 02HV33Z Insertion of Infusion Device into Superior Vena Cava, Percutaneous Approach (ICD-10-PCS; 2025-03-12)
PROC: B5181ZA Fluoroscopy of Superior Vena Cava using Low Osmolar Contrast, Guidance (ICD-10-PCS; 2025-03-12)
PROC: 0JB70ZZ Excision of Back Subcutaneous Tissue and Fascia, Open Approach (ICD-10-PCS; 2025-03-20)
PROC: 30233N1 Transfusion of Nonautologous Red Blood Cells into Peripheral Vein, Percutaneous Approach (ICD-10-PCS; 2025-03-20)
PROC: 4A033R1 Measurement of Arterial Saturation, Peripheral, Percutaneous Approach (ICD-10-PCS; 2025-03-20)
PROC: 3E03329 Introduction of Other Anti-infective into Peripheral Vein, Percutaneous Approach (ICD-10-PCS; 2025-03-20)
PROC: 0T9B70Z Drainage of Bladder with Drainage Device, Via Natural or Artificial Opening (ICD-10-PCS; 2025-03-20)
PROC: 02HV33Z Insertion of Infusion Device into Superior Vena Cava, Percutaneous Approach (ICD-10-PCS; 2025-03-26)
PROC: B5181ZA Fluoroscopy of Superior Vena Cava using Low Osmolar Contrast, Guidance (ICD-10-PCS; 2025-03-26)
DX: A41.01 Sepsis due to Methicillin susceptible Staphylococcus aureus (principal); I26.99 Other pulmonary embolism without acute cor pulmonale; J69.0 Pneumonitis due to inhalation of food and vomit; J96.01 Acute respiratory failure with hypoxia; R65.21 Severe sepsis with septic shock; N17.9 Acute kidney failure, unspecified; L02.415 Cutaneous abscess of right lower limb; N39.0 Urinary tract infection, site not specified; T84.51XA Infection and inflammatory reaction due to internal right hip prosthesis, initial encounter; M00.051 Staphylococcal arthritis, right hip; D62 Acute posthemorrhagic anemia; B37.81 Candidal esophagitis; A41.81 Sepsis due to Enterococcus; A41.59 Other Gram-negative sepsis; Z96.653 Presence of artificial knee joint, bilateral; L89.109 Pressure ulcer of unspecified part of back, unspecified stage; F31.9 Bipolar disorder, unspecified; E03.9 Hypothyroidism, unspecified; F10.10 Alcohol abuse, uncomplicated; Z98.890 Other specified postprocedural states; Z90.710 Acquired absence of both cervix and uterus; Z88.5 Allergy status to narcotic agent; Z88.8 Allergy status to other drugs, medicaments and biological substances
CPT/HCPCS: 36415; 36416; 36430; 36573; 36600; 70450; 71045; 71260; 71275; 72170; 74177; 76882; 76942; 80048; 80053; 80202; 80306; 80307; 81003; 81015; 82550; 82565; 82805; 82945; 83036; 83605; 83690; 83735; 83880; 84100; 84157; 84443; 84484; 85014; 85018; 85025; 85049; 85060; 85610; 85730; 86141; 86850; 86900; 86901; 87040; 87070; 87077; 87081; 87086; 87149; 87186; 87205; 87428; 87449; 87899; 89051; 89060; 93005; 93306; 93970; 94002; 94003; 96360; 96361; 96365; 96366; 96367; 96372; 96375; 97139; A6223; C1751; C1776; J0169; J0665; J0690; J0712; J0878; J1100; J1308; J1650; J1885; J1956; J2060; J2250; J2270; J2272; J2405; J2470; J2543; J2704; J2919; J3010; J3373; J3375; J3411; J3475; J3480; J7030; J7042; P9016; P9045; Q0162; Q0177; Q9967